=== PATIENT | female | born 1965 | race Caucasian/White ===

== ENCOUNTER → 2016-10-15 | Outpatient (CLI) | payer BC ==
--- NOTE | 2016-10-16 08:02 | MM ---
Reason for exam: additional evaluation requested from abnormal screening. Last mammogram was performed less than 1 month ago. History: Patient is postmenopausal. Family history of breast cancer in maternal aunt. Taking estrogen for 7 years. Physical Findings: Nurse did not find any significant physical abnormalities on exam. MG 3D Work Up W/Cad LT Spot compression CC, spot compression MLO, and LM view(s) were taken of the left breast. Prior study comparison: October 01, 2016, bilateral MG 3d screening mammo w/cad. September 30, 2015, bilateral MG screening mammo w CAD. September 17, 2014, bilateral MG screening mammo w CAD. June 01, 2013, bilateral digital screening mammo w/CAD. The breast tissue is heterogeneously dense. This may lower the sensitivity of mammography. The lateral asymmetry does not persist on additional views compatible with summation shadow. These results were verbally communicated with the patient and result sheet given to the patient on 10/15/16. ASSESSMENT: Negative, BI-RAD 1 RECOMMENDATION: Return to routine screening mammogram schedule for both breasts.
== END | disposition home or self-care (01) ==
LOC: RADMAMWWP 15:27
PROVIDERS: ATTEND Obstetrics & Gynecology
DX: R92.8 Other abnormal and inconclusive findings on diagnostic imaging of breast (principal)
CPT/HCPCS: G0206; G0279

== ENCOUNTER → 2016-10-23 | Outpatient (CLI) | payer BC ==
--- NOTE | 2016-10-26 16:03 | BD ---
EXAMINATION TYPE: MG DEXA axial skeleton. DATE OF EXAM: 10/23/2016 4:32 PM COMPARISON: NONE CLINICAL HISTORY: Height: 61 IN Weight: 152 LBS FRAX RISK QUESTIONS: Alcohol (3 or more units per day): NO Family History (Parent hip fracture): NO Glucocorticoids (More than 3mos): NO (Ex: prednisone, prednisolone, methylprednisolone, dexamethasone, and hydrocortisone). History of Fracture in Adulthood: NO Secondary Osteoporosis: 1. Type 1 Diabetes: NO 2. Hyperthyroidism: NO 3. Menopause before 45: YES PART HYST AGE 31 4. Malnutrition: NO 5. Chronic liver disease: NO Rheumatoid Arthritis: NO Current Tobacco Use: NO RISK FACTORS HISTORY OF: Active: YES Diet low in dairy products/other sources of calcium: YES Postmenopausal woman: AGE 31 Take estrogen and/or progesterone medications: YES How long: PREMARIN SINCE AGE 43 MEDICATIONS: Additional Medications: CALCIUM, VIT D, VIT E, IODINE DROPS, B12, EXAM MEASUREMENTS: Bone mineral densitometry was performed using the [email or web address] System. Bone mineral density as measured about the Lumbar spine is: ----- L1-L4(G/cm2): 1.405 T Score Values are as follows: ----- L2: 1.0 ----- L3: 2.8 ----- L4: 1.9 ----- L1-L4: 1.9 Bone mineral density has: NO CHANGE 0.0% since study of: 09/17/2014 Bone mineral density about the R hip (g/cm2): 1.062 Bone mineral density about the L hip (g/cm2): 1.048 T Score values are as follows: -----R Neck: 0.2 -----L Neck: 0.1 -----R Intertrochanter: -0.6 -----L Intertrochanter: -0.3 Bone mineral density has: Decreased -0.5% since study of: 09/17/2014 IMPRESSION: Normal (Values between +1 and -1 indicate normal bone mass) NOTE: T-SCORE=SD OF THE YOUNG ADULT MEAN.
== END | disposition home or self-care (01) ==
LOC: RADBDWWP 16:12
PROVIDERS: ATTEND Obstetrics & Gynecology
DX: M85.80 Other specified disorders of bone density and structure, unspecified site (principal)
CPT/HCPCS: 77080

== ENCOUNTER → 2016-10-23 | Outpatient (CLI) | payer BC ==
[2016-10-23 16:37] LABS: ALT 35 U/L (9-52); AST 20 U/L (14-36); Alkaline Phosphatase 105 U/L (38-126); Anion Gap 10 mmol/L; Blood Urea Nitrogen 17 mg/dL (7-17); Calcium 9.7 mg/dL (8.4-10.2); Carbon Dioxide 27 mmol/L (22-30); Chloride 105 mmol/L (98-107); Glucose 92 mg/dL (74-99); Non-African American GFR(MDRD) >60 (>60 ml/min/1.73 sqM); Potassium 4.1 mmol/L (3.5-5.1); Sodium 142 mmol/L (137-145); Total Bilirubin 0.3 mg/dL (0.2-1.3); Total Protein 6.5 g/dL (6.3-8.2)
== END | disposition home or self-care (01) ==
LOC: LABWHC1 16:00
PROVIDERS: ATTEND Surgery
DX: E04.1 Nontoxic single thyroid nodule (principal)
CPT/HCPCS: 36415; 80053; 84443; 84481

== ENCOUNTER → 2016-11-02 | Outpatient (CLI) | payer BC ==
--- NOTE | 2016-11-03 07:43 | US ---
EXAMINATION TYPE: US thyroid st tissue head/neck DATE OF EXAM: 11/02/2016 4:15 PM COMPARISON: NONE CLINICAL HISTORY: E04.1 Thyroid Nodule. GLAND SIZE: Right Lobe: 4.4 x 2.0 x 2.4 cm Overall Parenchyma: heterogenous Left Lobe: 4.0 x 1.3 x 1.2 cm Overall Parenchyma: heterogeneous Isthmus Thickness: 0.2 cm NODULES RIGHT: # of nodules measured on right: 1 1. 2.9 X 1.8 x 2.1 cm mixed nodule at the mid/lower pole with well-defined margins; . This nodule is wider than tall and shows intranodular vascularity. Prior size: 2.6 x 1.9 x 2.0 cm LEFT: # of nodules measured on left: 0 ISTHMUS: # of nodules measured in the isthmus: 0 IMPRESSION: 1. Large mixed appearing and predominantly solid nodule right lobe thyroid slightly increased in size from the previous exam. 2. No new thyroid nodules identified
== END | disposition home or self-care (01) ==
LOC: RADUSWWP 15:58
PROVIDERS: ATTEND Surgery
DX: E04.1 Nontoxic single thyroid nodule (principal)
CPT/HCPCS: 76536

== ENCOUNTER → 2017-03-25 | Outpatient (CLI) | payer OTHER ==
--- NOTE | 2017-03-25 18:11 | XR ---
Left foot HISTORY: Trauma and pain 3 views of the left foot No comparisons Bone mineralization, joint spaces and alignment are maintained. There is soft tissue swelling. IMPRESSION: No fracture or dislocation is evident
== END | disposition home or self-care (01) ==
LOC: RADXRMAIN 17:46
PROVIDERS: ATTEND Emergency Medicine
DX: S90.32XA Contusion of left foot, initial encounter (principal); X58.XXXA Exposure to other specified factors, initial encounter

== ENCOUNTER → 2017-09-16 | Outpatient (CLI) | payer BC, OTHER ==
[2017-09-16 08:23] LABS: Cholesterol 156 mg/dL (<200); HDL Cholesterol 62 mg/dL (40-60); LDL Cholesterol,Calculated 83 mg/dL (0-99); Triglycerides 57 mg/dL (<150)
--- NOTE | 2017-09-17 10:37 | MM ---
Reason for exam: screening (asymptomatic). Last mammogram was performed 11 months ago. History: Patient is postmenopausal. Family history of breast cancer in maternal aunt. Taking estrogen for 7 years. Physical Findings: A clinical breast exam by your physician is recommended on an annual basis and results should be correlated with mammographic findings. MG Screening Mammo w CAD Bilateral CC and MLO view(s) were taken. Prior study comparison: October 15, 2016, left breast MG 3d work up w/cad LT. October 01, 2016, bilateral MG 3d screening mammo w/cad. The breast tissue is heterogeneously dense. This may lower the sensitivity of mammography. No significant changes when compared with prior studies. ASSESSMENT: Negative, BI-RAD 1 RECOMMENDATION: Routine screening mammogram of both breasts in 1 year.
== END | disposition home or self-care (01) ==
LOC: RADMAMWWP 07:33
PROVIDERS: ATTEND Obstetrics & Gynecology
DX: Z12.31 Encounter for screening mammogram for malignant neoplasm of breast (principal); E78.5 Hyperlipidemia, unspecified
CPT/HCPCS: 80061; 36415; G0202

== ENCOUNTER → 2017-11-01 | Outpatient (CLI) | payer OTHER ==
--- NOTE | 2017-11-01 14:58 | XR ---
EXAMINATION TYPE: XR chest 2V DATE OF EXAM: 11/01/2017 COMPARISON: NONE HISTORY: Shortness of breath TECHNIQUE: Frontal and lateral views of the chest are obtained. FINDINGS: Scattered senescent parenchymal changes noted. No evidence for infiltrate. No evidence for atelectasis. Heart size is stable. Mediastinal structures are stable and grossly unremarkable. No evidence for hilar prominence. Degenerative changes dorsal spine. IMPRESSION: 1. No evidence for acute pulmonary disease.
== END | disposition home or self-care (01) ==
LOC: RADXRMAIN 14:28
PROVIDERS: ATTEND Emergency Medicine
DX: S20.02XA Contusion of left breast, initial encounter (principal); S20.20XA Contusion of thorax, unspecified, initial encounter
CPT/HCPCS: 71046

== ENCOUNTER → 2017-12-28 | Outpatient (CLI) | payer BC ==
[2017-12-28 17:58] LABS: T4, Free (Free Thyroxine) 0.79 ng/dL (0.78-2.19)
== END | disposition home or self-care (01) ==
LOC: LABWHC1 16:32
PROVIDERS: ATTEND Internal Medicine
DX: R94.6 Abnormal results of thyroid function studies (principal)
CPT/HCPCS: 36415; 84439; 84443; 84445; 84481

== ENCOUNTER 2018-06-18 02:33 | Emergency (ER) | payer BC, OTHER ==
[2018-06-18] MEDS ORDERED: IBUPROFEN 600 MG TAB PO STA (02:58)
--- NOTE | 2018-06-18 03:02 | ED ---
Female Urogenital HPI - General Chief complaint: Urogenital Stated complaint: Female Time Seen by Provider: 06/18/18 02:45 Source: patient, RN notes reviewed Mode of arrival: ambulatory Limitations: no limitations - History of Present Illness Initial comments: This is a 52-year-old female who presents to the emergency department with chief complaint of dysuria. Patient reports increased frequency of urination and burning with urination that started 2 days ago. She states that yesterday afternoon she noticed blood in her urine. Patient thought this was strange as she no longer has her period since having a hysterectomy in her 30s. She states that she has a history of urinary tract infections and symptoms are similar. She states she has been taking cranberry extract throughout the day yesterday. She denies any fevers or chills, chest pain or shortness of breath, abdominal pain, nausea or vomiting, diarrhea or constipation. She states pain is made better in the position. - Related Data Home Medications Medication Instructions Recorded Confirmed Calcium Carbonate/Vitamin D3 1 each PO DAILY 10/02/14 06/18/18 [Os-Andrés 500+D3 Caplet] Vitamin E (Dl,Tocopheryl Acet) 400 unit PO DAILY 10/02/14 06/18/18 [Vitamin E] Cyanocobalamin [Vitamin B-12] 500 mcg PO DAILY 06/18/18 06/18/18 Green Tea [place] Extract [Green Tea 150 mg PO DAILY 06/18/18 06/18/18 Extract] Previous Rx's Medication Instructions Recorded Phenazopyridine HCl [Pyridium] 200 mg PO TID #6 tablet 06/18/18 Sulfamethox-Tmp 800-160Mg [Bactrim 1 tab PO Q12HR #10 tab 06/18/18 DS 800-160 mg] Allergies Allergy/AdvReac Type Severity Reaction Status Date / Time povidone-iodine Allergy Itching Verified 06/18/18 02:38 [From Betadine] clarithromycin [From Biaxin] AdvReac Abdominal Verified 06/18/18 02:38 Pain Review of Systems ROS Statement: Those systems with pertinent positive or pertinent negative responses have been documented in the HPI. ROS Other: All systems not noted in ROS Statement are negative. Past Medical History Past Medical History: Thyroid Disorder History of Any Multi-Drug Resistant Organisms: None Reported Past Surgical History: Hysterectomy, Orthopedic Surgery, Tubal Ligation Additional Past Surgical History / Comment(s): right shoulder reconstruction, fallopian exploration, removal of cyst from neck behind ear and left leg. Past Anesthesia/Blood Transfusion Reactions: Previous Problems w/ Anesthesia Additional Past Anesthesia/Blood Transfusion Reaction / Comment(s): slow to wake up from anesthesia Past Psychological History: No Psychological Hx Reported Smoking Status: Never smoker Past Alcohol Use History: Occasional Past Drug Use History: None Reported - Past Family History Father Family Medical History: Cancer Mother Family Medical History: Cancer, Congestive Heart Failure (CHF), COPD General Exam - General Exam Comments Initial Comments: General: Awake and alert, well-developed; in mild distress due to pain, sitting at the edge of ED stretcher rocking back and forth. HEENT: Head atraumatic, normocephalic. Pupils are equal, round and reactive to light. Extraocular movements intact. Oropharynx moist without erythema or exudate. Neck: Supple. Normal ROM. Cardiovascular: Regular rate and rhythm. No murmurs, rubs or gallops. Chest symmetrical. Respiratory: Lungs clear to auscultation bilaterally. No wheezes, rales or rhonchi. Normal respiratory effort with no use of accessory muscles. Abdomen: Soft, non-distended. Suprapubic tenderness on palpation. No rigidity , rebound or guarding. Normal bowel sounds in all 4 quadrants. No CVA tenderness bilaterally. Musculoskeletal: Normal ROM, no tenderness bilateral upper and lower extremities. Ambulating normally. Skin: Mildred, warm and dry without rashes or lesions. Neurological: Alert and oriented x3. CN II-XII grossly intact. Speech is fluent and answers are appropriate. No focal neuro deficits. Psychiatric: Normal mood and affect. No overt signs of depression or anxiety noted. Limitations: no limitations Course Vital Signs 06/18/18 02:35 Temperature 97.4 F L Pulse Rate 93 Respiratory 18 Rate Blood Pressure 133/86 O2 Sat by Pulse 96 Oximetry Medical Decision Making - Medical Decision Making This is a 52-year-old female who presents to the emergency department with chief complaint of urinary symptoms. Patient reports urinary frequency, urgency and dysuria for 2 days. She states she then developed hematuria. Reports a history of urinary tract infections. On physical examination, patient does have mild suprapubic tenderness. No CVA tenderness. Patient denies any fevers or chills. She was given ibuprofen and states that her symptoms have improved. UA revealed large red blood cells, white blood cells, white blood cell clumps and leukocyte esterase. Patient will be treated with Bactrim and Pyridium for hemorrhagic cystitis. Recommended following up with primary care provider on Wednesday for repeat urinalysis. She will be discharged home at this time. She is in agreement with plan and voices understanding. All questions were answered. - Lab Data Lab Results 06/18/18 Range/Units 02:35 Urine Color Red Urine Appearance Cloudy H (Clear) Urine pH 7.0 (5.0-8.0) Ur Specific [place] 1.015 (1.001-1.035) Urine Protein 2+ H (Negative) Urine Glucose (UA) Negative (Negative) Urine Ketones Negative (Negative) Urine Blood Large H (Negative) Urine Nitrite Negative (Negative) Urine Bilirubin Negative (Negative) Urine Urobilinogen <2.0 (<2.0) mg/dL Ur Leukocyte Esterase Large H (Negative) Urine RBC >182 H (0-5) /hpf Urine WBC >182 H (0-5) /hpf Urine WBC Clumps Moderate H (None) /hpf Urine Bacteria Rare H (None) /hpf Urine Mucus Rare H (None) /hpf Disposition Clinical Impression: Hemorrhagic cystitis Disposition: HOME SELF-CARE Condition: Good Instructions: Urinary Tract Infection in Women (ED), Hematuria (ED) Additional Instructions: As discussed, please have urinalysis repeated on Wednesday to monitor for resolution of hematuria. Please take medications as prescribed. Please follow up with primary care provider within 1-2 days. Return to emergency department if symptoms should worsen or any concerns arise. Prescriptions: Phenazopyridine HCl [Pyridium] 200 mg PO TID #6 tablet Sulfamethox-Tmp 800-160Mg [Bactrim DS 800-160 mg] 1 tab PO Q12HR #10 tab Is patient prescribed a controlled substance at d/c from ED?: No Referrals: Maik Adams MD [Primary Care Provider] - 1-2 days Time of Disposition: 04:25
[2018-06-18 03:50] LABS: Appearance,Urine Cloudy (Clear); Bacteria,Urine Rare /hpf; Bilirubin,Urine Negative (Negative); Blood,Urine Large (Negative); Color,Urine Red; Glucose,Urine (UA) Negative (Negative); Ketones,Urine Negative (Negative); Leukocyte Esterase,Urine Large (Negative); Mucus,Urine Rare /hpf; Nitrite,Urine Negative (Negative); Protein,Urine 2+ (Negative); RBC,Urine >182 /hpf (0-5); Specific Gravity,Urine 1.015 (1.001-1.035); Urobilinogen,Urine <2.0 mg/dL (<2.0); WBC,Urine >182 /hpf (0-5)
[2018-06-18] MEDS ORDERED: PHENAZOPYRIDINE 200 MG TAB PO STA (04:28)
[2018-06-18] MEDS ORDERED: SULFAMETHOX-TMP 800-160MG 1 EACH TAB PO STA (04:28)
[2018-06-18 04:40] VITALS: BP 130/79; PULSE 78; RESP 20; TEMP 96.9
== END 2018-06-18 05:16 | disposition home or self-care (01) ==
LOC: EC 02:33
DX: N30.91 Cystitis, unspecified with hematuria (principal); Z88.8 Allergy status to other drugs, medicaments and biological substances; Z90.710 Acquired absence of both cervix and uterus
CPT/HCPCS: 81001; 99283

== ENCOUNTER → 2019-01-11 | Outpatient (CLI) | payer BC ==
--- NOTE | 2019-01-12 13:28 | MM ---
Reason for exam: screening (asymptomatic). Last mammogram was performed 1 year and 4 months ago. History: Patient is postmenopausal. Family history of breast cancer in maternal aunt. Taking estrogen for 7 years. Physical Findings: A clinical breast exam by your physician is recommended on an annual basis and results should be correlated with mammographic findings. MG Screening Mammo w CAD Bilateral CC and MLO view(s) were taken. Prior study comparison: September 16, 2017, bilateral MG screening mammo w CAD. October 15, 2016, left breast MG 3d work up w/cad LT. The breast tissue is heterogeneously dense. This may lower the sensitivity of mammography. There is chronic nodularity in the right breast. There is no discrete abnormality. ASSESSMENT: Negative, BI-RAD 1 RECOMMENDATION: Routine screening mammogram of both breasts in 1 year.
== END ==
LOC: RADMAMWWP 16:35
PROVIDERS: ATTEND Obstetrics & Gynecology
DX: Z12.31 Encounter for screening mammogram for malignant neoplasm of breast (principal)
CPT/HCPCS: 77067

== ENCOUNTER → 2020-05-08 | Outpatient (CLI) | payer BC | END | disposition home or self-care (01) | LOC: LABWHC1 08:57 | PROVIDERS: ATTEND Internal Medicine | DX: E03.9 Hypothyroidism, unspecified (principal) | CPT/HCPCS: 36415; 84439; 84443 ==

== ENCOUNTER 2020-06-18 14:45 | Observation (INO) | payer BC ==
[2020-06-18] MEDS ORDERED: MORPHINE SULFATE 2 MG/ML SYRINGE IVP STA (15:36)
[2020-06-18] MEDS ORDERED: SODIUM CHLORIDE 0.9% 500 ML 500 ML IV ONE (15:36)
[2020-06-18] MEDS ORDERED: VANCOMYCIN IV PER PHARMACY 1 EACH MISC MISCELLANE PRN (15:38)
[2020-06-18] MEDS ORDERED: PIPERACILLIN-TAZOBACTAM 3.375 GM in SODIUM CHLORIDE 0.9% 100 ML IVPB STA (15:38)
[2020-06-18] MEDS ORDERED: VANCOMYCIN 1,500 MG in SODIUM CHLORIDE 0.9% 250 ML IVPB STA (15:42)
[2020-06-18 16:27] LABS: Basophils # (A) 0.1 k/uL (0-0.2); Basophils % (A) 1 %; Eosinophils # (A) 0.2 k/uL (0-0.7); Eosinophils % (A) 4 %; HCT 46.2 % (34.0-46.0); HGB 15.3 gm/dL (11.4-16.0); Lymphocytes # (A) 1.5 k/uL (1.0-4.8); Lymphocytes % (A) 23 %; MCH 31.2 pg (25.0-35.0); MCHC 33.1 g/dL (31.0-37.0); MCV 94.3 fL (80.0-100.0); Mean Platelet Volume 7.5; Monocytes # (A) 0.4 k/uL (0-1.0); Monocytes % (A) 6 %; Neutrophils # (A) 4.2 k/uL (1.3-7.7); Neutrophils % (A) 65 %; Platelet Count 187 k/uL (150-450); RDW 12.3 % (11.5-15.5); WBC 6.5 k/uL (3.8-10.6)
[2020-06-18 16:32] LABS: ALT 20 U/L (4-34); AST 27 U/L (14-36); African American GFR (CKD) >90 (>60 ml/min/1.73 sqM); Albumin 4.8 g/dL (3.5-5.0); Alkaline Phosphatase 120 U/L (38-126); Anion Gap 10 mmol/L; Blood Urea Nitrogen 14 mg/dL (7-17); Calcium 9.8 mg/dL (8.4-10.2); Carbon Dioxide 24 mmol/L (22-30); Chloride 104 mmol/L (98-107); Glucose 89 mg/dL (74-99); Non-African American GFR(CKD) >90 (>60 ml/min/1.73 sqM); Potassium 4.3 mmol/L (3.5-5.1); Sodium 138 mmol/L (137-145); Total Bilirubin 0.6 mg/dL (0.2-1.3); Total Protein 7.5 g/dL (6.3-8.2)
--- NOTE | 2020-06-18 16:56 | XR ---
EXAMINATION TYPE: XR finger RT DATE OF EXAM: 06/18/2020 COMPARISON: None HISTORY: Flexor tenosynovitis TECHNIQUE: Three-view ring finger FINDINGS: No acute fractures or dislocations are evident. Joint spaces are preserved. There may be so me mild soft tissue swelling over the proximal ring finger. No radiopaque foreign bodies are evident. IMPRESSION: 1. No suspicious acute osseous abnormality. 2. Mild soft tissue swelling over the proximal ring finger may be present.
--- NOTE | 2020-06-18 16:59 | ED ---
Skin/Abscess/FB HPI <Chavo Jerry - Last Filed: 06/18/20 17:32> - General Source: patient Mode of arrival: ambulatory Limitations: no limitations <Simona Washington - Last Filed: 06/18/20 17:54> - General Chief complaint: Skin/Abscess/Foreign Body Stated complaint: poss bug bite rt hand Time Seen by Provider: 06/18/20 14:57 - History of Present Illness Initial comments: 54-year-old female presenting for right ring finger swelling and pain. Patient states she believes she was bit by a bug yesterday around noon. Patient states she now has redness of the entire digit and entire digit swelling she states is very tender if she bends the finger. She states she is limited range of motion. Patient states that she has pain along the palm of the hand now. He feels the redness streaking up the dorsal aspect of her distal forearm, admits to warmth of area. Patietn denies entire body rash. Denies drainage. Patietn states when pain and swelling increased today she went to her PCP who sent her to the ER because he was concerned of infection. Patient appears well nontoxic on arrival in the emergency department. (Simona Washington) - Related Data Home Medications Medication Instructions Recorded Confirmed Calcium Carbonate/Vitamin D3 1 each PO DAILY 10/02/14 06/18/18 [Os-Andrés 500+D3 Caplet] Vitamin E (Dl,Tocopheryl Acet) 400 unit PO DAILY 10/02/14 06/18/18 [Vitamin E] Cyanocobalamin [Vitamin B-12] 500 mcg PO DAILY 06/18/18 06/18/18 Green Tea [place] Extract [Green Tea 150 mg PO DAILY 06/18/18 06/18/18 Extract] Previous Rx's Medication Instructions Recorded Phenazopyridine HCl [Pyridium] 200 mg PO TID #6 tablet 06/18/18 Sulfamethox-Tmp 800-160Mg [Bactrim 1 tab PO Q12HR #10 tab 06/18/18 DS 800-160 mg] Allergies Allergy/AdvReac Type Severity Reaction Status Date / Time povidone-iodine Allergy Itching Verified 06/18/20 14:48 [From Betadine] clarithromycin [From Biaxin] AdvReac Abdominal Verified 06/18/20 14:48 Pain Review of Systems ROS Other: All systems not noted in ROS Statement are negative. <Chavo Jerry - Last Filed: 06/18/20 17:32> ROS Other: All systems not noted in ROS Statement are negative. <Simona Washington - Last Filed: 06/18/20 17:54> ROS Statement: Those systems with pertinent positive or pertinent negative responses have been documented in the HPI. Past Medical History Past Medical History: Thyroid Disorder History of Any Multi-Drug Resistant Organisms: None Reported Past Surgical History: Hysterectomy, Orthopedic Surgery, Tubal Ligation Additional Past Surgical History / Comment(s): right shoulder reconstruction, fallopian exploration, removal of cyst from neck behind ear and left leg. Past Anesthesia/Blood Transfusion Reactions: Previous Problems w/ Anesthesia Additional Past Anesthesia/Blood Transfusion Reaction / Comment(s): slow to wake up from anesthesia Past Psychological History: No Psychological Hx Reported Smoking Status: Former smoker Past Alcohol Use History: Occasional Past Drug Use History: None Reported - Past Family History Father Family Medical History: Cancer Mother Family Medical History: Cancer, Congestive Heart Failure (CHF), COPD <Simona Washington - Last Filed: 06/18/20 17:54> General Exam Limitations: no limitations <Simona Washington - Last Filed: 06/18/20 17:54> - General Exam Comments Initial Comments: General: The patient is awake and alert, in no distress, and does not appear acutely ill. Eye: +3 mm pupils are equal, round and reactive to light, extra-ocular movements are intact. No nystagmus. There is normal conjunctiva bilaterally. No signs of icterus. Ears, nose, mouth and throat: There are moist mucous membranes and no oral lesions. Musculoskeletal: Right ring finger swelling, redness, pain with active an dpassive flexion and along tendon seath there is fusiform swelling, there is some warmth, faint redness on dorsal aspec that traveling the ulnar aspect towards proximal forearm. No ascbess or areas of fluctuance Sensation intact. Radial pulses equal bilaterally 2+. Neurological: A&O x 3. CN II-XII intact grossly, There are no obvious motor or sensory deficits. Coordination appears grossly intact. Speech is normal. Skin: Skin is warm and dry and no rashes or lesions are noted. Psychiatric: Cooperative, appropriate mood & affect, normal judgment. (Simona Washington) Course <Chavo Jerry - Last Filed: 06/18/20 17:32> Vital Signs 06/18/20 06/18/20 14:46 15:02 Temperature 97.9 F Pulse Rate 74 Respiratory 16 16 Rate Blood Pressure 131/83 O2 Sat by Pulse 97 Oximetry - Reevaluation(s) Reevaluation #1: 06/18/20 17:32 PA supervision: I proceeded [id number] evaluation the patient she did present with complaints of right ring finger pain and erythema swelling after a suspected insect bite. The presentation is consistent with tenosynovitis. Patient will be admitted to orthopedics. I do agree with the assessment and plan. (Chavo Jerry) Medical Decision Making - Lab Data Result diagrams: 06/18/20 16:07 06/18/20 16:07 <Chavo Jerry - Last Filed: 06/18/20 17:32> - Lab Data Result diagrams: 06/18/20 16:07 06/18/20 16:07 <Simona Washington - Last Filed: 06/18/20 17:54> - Medical Decision Making 54-year-old female presenting to the emergency department for chief complaint of right ring finger pain and swelling redness she was concerned of infection. Differential diagnosis includes local reaction to bug bite that patient suspects. However given the [place] signs are present there is concern for a flexor tenosynovitis. XR no radial lucent foreign body. Patient does not appear toxic, no leukocytosis. Discussed case [facility] orthopedic who recommended ID consult, elevation of hand are agreeable to zosyn and vancomycin as well as admission. Pt evaluated by Dr. Jerry who is agreeable to care plan and admission. (Simona Washington) - Lab Data Lab Results 06/18/20 06/18/20 06/18/20 Range/Units 16:07 16:07 16:21 WBC 6.5 (3.8-10.6) k/uL RBC 4.90 (3.80-5.40) m/uL Hgb 15.3 (11.4-16.0) gm/dL Hct 46.2 H (34.0-46.0) % MCV 94.3 (80.0-100.0) fL MCH 31.2 (25.0-35.0) pg MCHC 33.1 (31.0-37.0) g/dL RDW 12.3 (11.5-15.5) % Plt Count 187 (150-450) k/uL Neutrophils % 65 % Lymphocytes % 23 % Monocytes % 6 % Eosinophils % 4 % Basophils % 1 % Neutrophils # 4.2 (1.3-7.7) k/uL Lymphocytes # 1.5 (1.0-4.8) k/uL Monocytes # 0.4 (0-1.0) k/uL Eosinophils # 0.2 (0-0.7) k/uL Basophils # 0.1 (0-0.2) k/uL Sodium 138 (137-145) mmol/L Potassium 4.3 (3.5-5.1) mmol/L Chloride 104 (98-107) mmol/L Carbon Dioxide 24 (22-30) mmol/L Anion Gap 10 mmol/L BUN 14 (7-17) mg/dL Creatinine 0.75 (0.52-1.04) mg/dL Est GFR (CKD-EPI)AfAm >90 (>60 ml/min/1.73 sqM) Est GFR (CKD-EPI)NonAf >90 (>60 ml/min/1.73 sqM) Glucose 89 (74-99) mg/dL Plasma Lactic Acid Yannick 0.8 (0.7-2.0) mmol/L Calcium 9.8 (8.4-10.2) mg/dL Total Bilirubin 0.6 (0.2-1.3) mg/dL AST 27 (14-36) U/L ALT 20 (4-34) U/L Alkaline Phosphatase 120 (38-126) U/L Total Protein 7.5 (6.3-8.2) g/dL Albumin 4.8 (3.5-5.0) g/dL Disposition <Chavo Jerry - Last Filed: 06/18/20 17:32> Is patient prescribed a controlled substance at d/c from ED?: No Time of Disposition: 17:25 Decision to Admit Reason: Admit from EC Decision Date: 06/18/20 Decision Time: 17:25 <Simona Washington - Last Filed: 06/18/20 17:54> Clinical Impression: Finger swelling, Finger pain, Flexor tenosynovitis of finger Disposition: ADMITTED IP TO THIS HOSP Condition: Stable Referrals: Maik Adams MD [Primary Care Provider] - 1-2 days
[2020-06-18] MEDS ORDERED: NALOXONE 0.4 MG/ML 1 ML VIAL IV PRN (17:23)
[2020-06-18] MEDS: SODIUM CHLORIDE 0.9% 1,000 ML IV SCH (18:20)
[2020-06-18] MEDS: HYDROcodone/APAP 5-325MG 1 EACH TAB PO PRN (20:02)
[2020-06-18] MEDS ORDERED: diphenhydrAMINE 25 MG CAP PO STA (20:35)
[2020-06-19] MEDS: SODIUM CHLORIDE 0.9% 1,000 ML IV SCH ×4 (05:26→23:36)
[2020-06-19] MEDS: HYDROcodone/APAP 5-325MG 1 EACH TAB PO PRN ×2 (08:40→14:10)
[2020-06-19] MEDS ORDERED: VANCOMYCIN 1,250 MG in SODIUM CHLORIDE 0.9% 250 ML IVPB SCH (09:00)
[2020-06-19] MEDS: methylPREDNISolone SOD SUCCI 40 MG/ML 1 ML VIAL IV SCH ×3 (09:24→23:13)
--- NOTE | 2020-06-19 13:16 | P.HPOR ---
History of Present Illness H&P Date: 06/19/20 Chief Complaint: Right ring finger pain swelling She states that she feels that she got bitten by something on her right ring finger about 2 days ago. She initially developed itching then progressed to swelling and pain. She's also had some stiffness and tightness of the finger. She is denying numbness or tingling. She presented to the emergency department yesterday with continued pain and symptoms. She was admitted overnight and has been on IV antibiotics. She continues to have pain and swelling this morning. She is denying constant numbness or tingling. She denies fever or chills. She has no other complaints. Review of Systems All systems: negative Constitutional: Denies chills, Denies fever Eyes: denies blurred vision, denies pain Ears, nose, mouth and throat: Denies headache, Denies sore throat Cardiovascular: Denies chest pain, Denies shortness of breath Respiratory: Denies cough Gastrointestinal: Denies abdominal pain, Denies diarrhea, Denies nausea, Denies vomiting Genitourinary: Denies dysuria, Denies hematuria Musculoskeletal: Denies myalgias Integumentary: Denies pruritus, Denies rash Neurological: Denies numbness, Denies weakness Psychiatric: Denies anxiety, Denies depression Endocrine: Denies fatigue, Denies weight change Past Medical History Past Medical History: Thyroid Disorder History of Any Multi-Drug Resistant Organisms: None Reported Past Surgical History: Hysterectomy, Orthopedic Surgery, Tubal Ligation Additional Past Surgical History / Comment(s): right shoulder reconstruction, fallopian exploration, removal of cyst from neck behind ear and left leg. Past Anesthesia/Blood Transfusion Reactions: Previous Problems w/ Anesthesia Additional Past Anesthesia/Blood Transfusion Reaction / Comment(s): slow to wake up from anesthesia Past Psychological History: No Psychological Hx Reported Smoking Status: Former smoker Past Alcohol Use History: Occasional Past Drug Use History: None Reported - Past Family History Father Family Medical History: Cancer Mother Family Medical History: Cancer, Congestive Heart Failure (CHF), COPD Medications and Allergies Home Medications Medication Instructions Recorded Confirmed Type Calcium Carbonate/Vitamin D3 1 each PO HS 10/02/14 06/18/20 History [Os-Andrés 500+D3 Caplet] Vitamin E (Dl,Tocopheryl Acet) 400 unit PO HS 10/02/14 06/18/20 History [Vitamin E] Cyanocobalamin [Vitamin B-12] 500 mcg PO HS 06/18/18 06/18/20 History Biotin Gummy (Unknown Strength) 1 tab PO DAILY 06/18/20 06/18/20 History Estrogens, Conjugated [Premarin] 0.3 mg PO HS 06/18/20 06/18/20 History Levothyroxine Sodium [Synthroid] 20 mcg PO QAM 06/18/20 06/18/20 History Vitamin C Gummy 1 tab PO DAILY 06/18/20 06/18/20 History Allergies Allergy/AdvReac Type Severity Reaction Status Date / Time povidone-iodine Allergy Itching Verified 06/18/20 14:48 [From Betadine] clarithromycin [From Biaxin] AdvReac Abdominal Verified 06/18/20 14:48 Pain Physical Examination There is moderate edema about the right ring finger. Mild diffuse erythema. Tender to palpation. No wound or abcess identified. Pain with Flexion and extension of the ring finger and somewhat limited due to swelling.. The remainder of the digits and hand are benign in appearance and palpation. She is able to flex and extend all other digits without difficulty. There is no ascending erythema. Neurovascular status is intact with sensation in all digits. Motor is intact as well. 2+ radial pulses present and less than 2 second capillary refill is present. There is painless range of motion of the wrist. Results X-rays of the right hand are negative for foreign body, fracture, osteomyelitis. - Labs Labs: Abnormal Lab Results - Last 24 Hours (Table) 06/18/20 06/18/20 Range/Units 16:07 16:07 Hct 46.2 H (34.0-46.0) % C-Reactive Protein 16.8 H (<10.0) mg/L H & H 06/18/20 Range/Units 16:07 Hgb 15.3 (11.4-16.0) gm/dL Hct 46.2 H (34.0-46.0) % Result Diagrams: 06/18/20 16:07 06/18/20 16:07 Assessment and Plan (1) Finger pain Current Visit: Yes Status: Acute Priority: Medium Code(s): M79.646 - PAIN IN UNSPECIFIED FINGER(S) SNOMED Code(s): 00949502 (2) Finger swelling Narrative/Plan: There are no plans for immediate surgical intervention however she will be nothing by mouth after midnight again tonight. She we'll continue on IV antibiotics, elevation and pain management. We'll also order IV corticosteroids today. We will continue to monitor and make further recommendations as appropriate. Also appreciate the assistance of infectious disease. Current Visit: Yes Status: Acute Priority: Medium Code(s): M79.89 - OTHER SPECIFIED SOFT TISSUE DISORDERS SNOMED Code(s): 411771186 (3) Flexor tenosynovitis of finger Current Visit: Yes Status: Acute Priority: Medium Code(s): M65.9 - SYNOVITIS AND TENOSYNOVITIS, UNSPECIFIED SNOMED Code(s): 688121912
[2020-06-20 05:55] LABS: African American GFR (CKD) >90 (>60 ml/min/1.73 sqM); Non-African American GFR(CKD) >90 (>60 ml/min/1.73 sqM)
[2020-06-20] MEDS: SODIUM CHLORIDE 0.9% 1,000 ML IV SCH (06:25)
--- NOTE | 2020-06-20 06:27 | P.CONS ---
History of Present Illness - Reason for Consult Consult date: 06/19/20 Right ring finger tenosynovitis Requesting physician: Manohar Martinez - Chief Complaint Right ring finger pain swelling redness x 2 days - History of Present Illness Patient is a 54 year female presenting to the ER at [facility] yesterday her with the right ring finger pain swelling and redness that has been going on for about 2 days patient mentioned she went to her house and picked up a hose outside in the garden and she thought something bit her in the ring finger she immediately throw away the hose however the patient did not see anything flying out patient noticed the area of irritation to the right ring finger that has progressively gotten worse over the next 24 hours becoming more swollen and slightly red and painful discomfort and the pain to be throbbing almost 10 out of 10 in severity and no radiation patient currently does not have any open wound or any drainage on presentation to the hospital the patient was afebrile did have a normal white count x-rays of the right hand did not show any foreign body did show some swelling of the proximal right ring finger patient was started on vancomycin has been admitted to the observation unit infectious disease was consulted for further management of antibiotic therapy Review of Systems Positive point has been mentioned in the HPI rest of the systems are negative Past Medical History Past Medical History: Thyroid Disorder History of Any Multi-Drug Resistant Organisms: None Reported Past Surgical History: Hysterectomy, Orthopedic Surgery, Tubal Ligation Additional Past Surgical History / Comment(s): right shoulder reconstruction, fallopian exploration, removal of cyst from neck behind ear and left leg. Past Anesthesia/Blood Transfusion Reactions: Previous Problems w/ Anesthesia Additional Past Anesthesia/Blood Transfusion Reaction / Comm: slow to wake up from anesthesia Past Psychological History: No Psychological Hx Reported Smoking Status: Former smoker Past Alcohol Use History: Occasional Past Drug Use History: None Reported - Past Family History Father Family Medical History: Cancer Mother Family Medical History: Cancer, Congestive Heart Failure (CHF), COPD Medications and Allergies Home Medications Medication Instructions Recorded Confirmed Type Calcium Carbonate/Vitamin D3 1 each PO HS 10/02/14 06/18/20 History [Os-Andrés 500+D3 Caplet] Vitamin E (Dl,Tocopheryl Acet) 400 unit PO HS 10/02/14 06/18/20 History [Vitamin E] Cyanocobalamin [Vitamin B-12] 500 mcg PO HS 06/18/18 06/18/20 History Biotin Gummy (Unknown Strength) 1 tab PO DAILY 06/18/20 06/18/20 History Estrogens, Conjugated [Premarin] 0.3 mg PO HS 06/18/20 06/18/20 History Levothyroxine Sodium [Synthroid] 20 mcg PO QAM 06/18/20 06/18/20 History Vitamin C Gummy 1 tab PO DAILY 06/18/20 06/18/20 History Allergies Allergy/AdvReac Type Severity Reaction Status Date / Time povidone-iodine Allergy Itching Verified 06/18/20 14:48 [From Betadine] clarithromycin [From Biaxin] AdvReac Abdominal Verified 06/18/20 14:48 Pain Physical Exam Vitals: Vital Signs Temp Pulse Pulse Resp BP BP Pulse Ox 06/19/20 08:49 97.4 F L 60 14 101/67 95 06/19/20 03:00 63 16 06/19/20 02:30 97.6 F 60 16 121/72 96 06/18/20 19:10 97.8 F 63 16 133/70 95 06/18/20 18:00 97.8 F 62 16 134/78 99 06/18/20 17:51 97.6 F 60 14 146/67 99 06/18/20 15:02 16 06/18/20 14:46 97.9 F 74 16 131/83 97 Intake and Output 06/18/20 06/19/20 06/19/20 22:59 06:59 14:59 Intake Total 1180 Balance 1180 Intake: Amount of Fluid Infused ( 700 ml) Oral 480 Other: Voiding Method Toilet Toilet Toilet # Voids 1 1 Weight 74.843 kg GENERAL DESCRIPTION: Middle-aged female lying in bed, no distress. No tachypnea or accessory muscle of respiration use. HEENT: Shows Pallor , no scleral icterus. Oral mucous membrane is dry. No pharyngeal erythema or thrush NECK: Trachea central, no thyromegaly. LUNGS: Unlabored breathing. Clear to auscultation anteriorly. No wheeze or crackle. HEART: S1, S2, regular rate and rhythm. No loud murmur ABDOMEN: Soft, no tenderness , guarding or rigidity, no organomegaly EXTREMITIES: Right ring finger did have diffuse swelling and redness mostly on the palmar aspect slightly warm and tender to touch no open wound or any drainage SKIN: No rash, no masses palpable. NEUROLOGICAL: The patient is awake, alert, oriented x3, mood and affect normal. 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 with concern for possible bug bite versus trauma from it the sharp when she picked up the hose, and will need to cover for the gram-positive skin danyell such as Streptococcus Less likely MRSA or gram-negative infection (1) Cellulitis of finger of right hand Current Visit: Yes Status: Acute Code(s): L03.011 - CELLULITIS OF RIGHT FINGER SNOMED Code(s): 61407230 Plan: 1- discontinue vancomycin 2- started the patient cefazolin 2 g every 8 hours 3-repeat CBC and inflammatory markers in the morning We will follow on clinical condition and cultures to further adjust medication if needed Thank you for this consultation will follow this patient with you Time with Patient: Greater than 30
[2020-06-20 07:26] LABS: Basophils % (A) 0 %; Eosinophils % (A) 0 %; HGB 13.9 gm/dL (11.4-16.0); Lymphocytes # (A) 0.7 k/uL (1.0-4.8); Lymphocytes % (A) 6 %; MCH 31.2 pg (25.0-35.0); MCHC 32.3 g/dL (31.0-37.0); MCV 96.7 fL (80.0-100.0); Mean Platelet Volume 8.3; Monocytes # (A) 0.3 k/uL (0-1.0); Monocytes % (A) 2 %; Neutrophils # (A) 11.7 k/uL (1.3-7.7); Neutrophils % (A) 92 %; Platelet Count 184 k/uL (150-450); RBC 4.45 m/uL (3.80-5.40); RDW 12.2 % (11.5-15.5); WBC 12.7 k/uL (3.8-10.6)
[2020-06-20 07:58] VITALS: BP 127/66; PULSE 68; RESP 16; TEMP 97.5
[2020-06-20] MEDS: methylPREDNISolone SOD SUCCI 40 MG/ML 1 ML VIAL IV SCH (08:03)
--- NOTE | 2020-06-20 10:17 | P.DS ---
Providers Date of admission: 06/18/20 17:31 Expected date of discharge: 06/20/20 Attending physician: Ricky Tillman Consults: 06/18/20 17:24 Consult Physician Routine Consulting Provider: Norman Hernandez Consult Reason/Comments: r/o flexor tenosynovitis Do you want consulting provider notified?: Yes Primary care physician: Maik Adams - Discharge Diagnosis(es) (1) Finger pain Patient was admitted 06/18/20 for right fing finger swelling and pain. There was suspected bite and possible flexor tenosynitis or infection. She was given IV antibiotics and corticosteroids. She has improved more than 50% by day of discharge with swelling, pain and funstion. She has no signs of infection. She is afebrile, VSS, NVI, labs acceptable ranges. She has no new complaints. She d esires discharge to home. She will take oral antibiotics and oral corticosteroids for 6 days. She will f/u in one week as outpatient. She is advised to f/u sooner if worsens Current Visit: Yes Status: Acute Priority: Medium (2) Finger swelling Current Visit: Yes Status: Acute Priority: Medium (3) Flexor tenosynovitis of finger Current Visit: Yes Status: Acute Priority: Medium Patient Condition at Discharge: Stable Plan - Discharge Summary New Discharge Prescriptions: New Amoxicillin/Potassium Clav [Augmentin 875-125 Tablet] 1 tab PO Q12HR 5 Days #10 tab methylPREDNISolone Dose Pack [Medrol Dose Pack] 4 mg PO DIRECTED #21 package No Action Calcium Carbonate/Vitamin D3 [Os-Andrés 500+D3 Caplet] 1 each PO HS Vitamin E (Dl,Tocopheryl Acet) [Vitamin E] 400 unit PO HS Cyanocobalamin [Vitamin B-12] 500 mcg PO HS Levothyroxine Sodium [Synthroid] 20 mcg PO QAM Estrogens, Conjugated [Premarin] 0.3 mg PO HS Biotin Gummy (Unknown Strength) 1 tab PO DAILY Vitamin C Gummy 1 tab PO DAILY Discharge Medication List Calcium Carbonate/Vitamin D3 [Os-Andrés 500+D3 Caplet] 1 each PO HS 10/02/14 [History] Vitamin E (Dl,Tocopheryl Acet) [Vitamin E] 400 unit PO HS 10/02/14 [History] Cyanocobalamin [Vitamin B-12] 500 mcg PO HS 06/18/18 [History] Biotin Gummy (Unknown Strength) 1 tab PO DAILY 06/18/20 [History] Estrogens, Conjugated [Premarin] 0.3 mg PO HS 06/18/20 [History] Levothyroxine Sodium [Synthroid] 20 mcg PO QAM 06/18/20 [History] Vitamin C Gummy 1 tab PO DAILY 06/18/20 [History] Amoxicillin/Potassium Clav [Augmentin 875-125 Tablet] 1 tab PO Q12HR 5 Days #10 tab 06/20/20 [Rx] methylPREDNISolone Dose Pack [Medrol Dose Pack] 4 mg PO DIRECTED #21 package 06/20/20 [Rx] Follow up Appointment(s)/Referral(s): Maik Adams MD [Primary Care Provider] - 1-2 days Manohar Martinez PAC [PHYSICIAN BRAID MAKER] - 1 Week Activity/Diet/Wound Care/Special Instructions: elevate take meds as directed F/U in office in one week. Sooner if worsens Discharge Disposition: HOME SELF-CARE
== END 2020-06-20 10:57 | disposition home or self-care (01) ==
LOC: EC 14:45 → 1SOBS 17:31
PROVIDERS: ADMIT Orthopaedic Surgery Sports Medicine; ATTEND Orthopaedic Surgery Sports Medicine
DX: M65.9 Synovitis and tenosynovitis, unspecified (principal); Z79.890 Hormone replacement therapy; Z82.49 Family history of ischemic heart disease and other diseases of the circulatory system; Z82.5 Family history of asthma and other chronic lower respiratory diseases; Z87.891 Personal history of nicotine dependence; Z90.710 Acquired absence of both cervix and uterus
CPT/HCPCS: 96361 ×2; 96366 ×3; 96367 ×2; 96375 ×2; 96376 ×2; 96365; 99284; 36415; 80053; 82565; 83605; 85025 ×2; 86140 ×2; 87040; 73140; G0378 ×3; J2543; J3370 ×2; J2920 ×2; J0690 ×2; J2270

== ENCOUNTER → 2020-07-19 | Outpatient (CLI) | payer BC ==
--- NOTE | 2020-07-23 12:19 | MM ---
Reason for exam: screening (asymptomatic). Last mammogram was performed 1 year and 6 months ago. History: Patient is postmenopausal. Family history of breast cancer in maternal aunt. Taking estrogen for 7 years. Physical Findings: A clinical breast exam by your physician is recommended on an annual basis and results should be correlated with mammographic findings. MG 3D Screening Mammo W/Cad Bilateral CC and MLO view(s) were taken. Prior study comparison: January 11, 2019, bilateral MG screening mammo w CAD. September 16, 2017, bilateral MG screening mammo w CAD. The breast tissue is heterogeneously dense. This may lower the sensitivity of mammography. There is chronic nodularity in the right breast. Possible new early oil cyst formation central right breast. Magnification views recommended. ASSESSMENT: Incomplete: need additional imaging evaluation, BI-RAD 0 RECOMMENDATION: Special view mammogram of the right breast. If lesion persists on supplemental views, image directed ultrasound is recommended. [facility] will attempt to contact patient to return for supplemental views and ultrasound if indicated.
== END | disposition home or self-care (01) ==
LOC: RADMAMWWP 16:15
PROVIDERS: ATTEND Obstetrics & Gynecology
DX: Z12.31 Encounter for screening mammogram for malignant neoplasm of breast (principal)
CPT/HCPCS: 77063; 77067

== ENCOUNTER → 2020-08-06 | Outpatient (CLI) | payer BC ==
--- NOTE | 2020-08-06 14:53 | MM ---
Reason for exam: additional evaluation requested from abnormal screening. Last mammogram was performed 1 month ago. History: Patient is postmenopausal. Family history of breast cancer in maternal aunt. Taking estrogen for 15 years. Physical Findings: Nurse did not find any significant physical abnormalities on exam. MG 3D Work Up W/Cad RT CC and MLO view(s) were taken of the right breast. Prior study comparison: July 19, 2020, bilateral MG 3d screening mammo w/cad. January 11, 2019, bilateral MG screening mammo w CAD. The breast tissue is heterogeneously dense. This may lower the sensitivity of mammography. Finding: There are typically benign coarse, grouped/clustered calcifications in the right breast. There is no discrete abnormality. New finding since January 11, 2019. These results were verbally communicated with the patient and result sheet given to the patient on 08/06/20. ASSESSMENT: Probably benign, BI-RAD 3 RECOMMENDATION: Follow-up diagnostic mammogram of the right breast in 6 months.
== END | disposition home or self-care (01) ==
LOC: RADMAMWWP 13:44
PROVIDERS: ATTEND Obstetrics & Gynecology
DX: R92.8 Other abnormal and inconclusive findings on diagnostic imaging of breast (principal)
CPT/HCPCS: 77061; 77065

== ENCOUNTER → 2020-09-17 | Outpatient (CLI) | payer BC | END | disposition home or self-care (01) | LOC: LABWHC1 16:32 | PROVIDERS: ATTEND Nurse Practitioner Family | DX: Z20.828 Contact with and (suspected) exposure to other viral communicable diseases (principal) | CPT/HCPCS: U0003; C9803 ==

== ENCOUNTER → 2021-01-08 | Outpatient (CLI) | payer BC ==
--- NOTE | 2021-01-08 09:48 | MM ---
Reason for exam: follow-up at short interval from prior study. Last mammogram was performed 5 months ago. History: Patient is postmenopausal. Family history of breast cancer in maternal aunt. Taking estrogen for 15 years. Physical Findings: Nurse did not find any significant physical abnormalities on exam. MG 3D Diag Mammo W/Cad RT CC, MLO, and XCCL view(s) were taken of the right breast. Prior study comparison: August 06, 2020, right breast MG 3d work up w/cad RT. July 19, 2020, bilateral MG 3d screening mammo w/cad. The breast tissue is heterogeneously dense. This may lower the sensitivity of mammography. Benign appearing course calcifications in the right breast. No significant new findings when compared with previous films. These results were verbally communicated with the patient and result sheet given to the patient on 01/08/21. ASSESSMENT: Benign, BI-RAD 2 RECOMMENDATION: Return to routine screening mammogram schedule for both breasts. Back on schedule for July 2021.
== END | disposition home or self-care (01) ==
LOC: RADMAMWWP 08:53
PROVIDERS: ATTEND Obstetrics & Gynecology
DX: Z78.0 Asymptomatic menopausal state (principal); Z80.3 Family history of malignant neoplasm of breast
CPT/HCPCS: 77061; 77065

== ENCOUNTER → 2021-07-21 | Outpatient (CLI) | payer BC ==
[2021-07-22 15:03] LABS: Anion Gap 11.9 mmol/L (4.00-12.00); BUN/Creat Ratio 20.27 Ratio (12.00-20.00); Blood Urea Nitrogen 14.8 mg/dL (9.0-27.0); Calcium 9.4 mg/dL (8.7-10.3); Non-African American GFR(CKD) 91.4 (60.0-200.0); Potassium 3.9 mmol/L (3.5-5.5); T4, Free (Free Thyroxine) 1.15 ng/dL (0.800-1.800)
== END | disposition home or self-care (01) ==
LOC: LABWHC1 14:21
PROVIDERS: ATTEND Internal Medicine
DX: E55.9 Vitamin D deficiency, unspecified (principal); N95.1 Menopausal and female climacteric states
CPT/HCPCS: 36415; 80048; 82306; 84439; 84443

== ENCOUNTER → 2021-09-16 | Outpatient (CLI) | payer BC ==
--- NOTE | 2021-09-17 12:47 | MM ---
Reason for exam: screening (asymptomatic). Last mammogram was performed 8 months ago. History: Patient is postmenopausal. Family history of breast cancer in maternal aunt. Taking estrogen for 15 years. Physical Findings: A clinical breast exam by your physician is recommended on an annual basis and results should be correlated with mammographic findings. MG 3D Screening Mammo W/Cad Bilateral CC and MLO view(s) were taken. Prior study comparison: January 08, 2021, right breast MG 3d diag mammo w/cad RT. August 06, 2020, right breast MG 3d work up w/cad RT. The breast tissue is heterogeneously dense. This may lower the sensitivity of mammography. No significant changes when compared with prior studies. ASSESSMENT: Benign, BI-RAD 2 RECOMMENDATION: Routine screening mammogram of both breasts in 1 year.
== END | disposition home or self-care (01) ==
LOC: RADMAMWWP 10:45
PROVIDERS: ATTEND Obstetrics & Gynecology
DX: Z12.31 Encounter for screening mammogram for malignant neoplasm of breast (principal); Z80.3 Family history of malignant neoplasm of breast
CPT/HCPCS: 77063; 77067

== ENCOUNTER 2022-07-09 15:14 | Emergency (ER) | payer BC ==
[2022-07-09] MEDS ORDERED: SODIUM CHLORIDE 0.9% 500 ML 500 ML IV STA (15:50)
[2022-07-09] MEDS ORDERED: KETOROLAC 15 MG/ML 1 ML VIAL IVP STA (15:50)
--- NOTE | 2022-07-09 15:54 | ED ---
General Adult HPI - General Chief complaint: Shortness of Breath Stated complaint: Covid+,LISA Time Seen by Provider: 07/09/22 15:40 Source: patient Mode of arrival: ambulatory Limitations: no limitations - History of Present Illness Initial comments: Dictation was produced using [employer] dictation software. please excuse any grammatical, word or spelling errors. Chief Complaint: 57-year-old female presents emergency Department with chest pressure, shortness of breath,, lower back pain and positive cold test today History of Present Illness: Patient is a 57-year-old female she presents to the emergency department from home. Patient tested positive for COVID-19 earlier today. She's been symptomatic for 2 days. Patient has symptoms of lower back pain, shortness of breath, chest pressure to the anterior chest and raspy voice. Patient has any fevers however she has been having some chills and fatigue. Denies any abdominal pain. No nausea. Chest pain is nonradiating no associated diaphoresis. The ROS documented in this emergency department record has been reviewed and confirmed by me. Those systems with pertinent positive or negative responses have been documented in the HPI. All other systems are other negative and/or noncontributory. PHYSICAL EXAM: General Impression: Alert and oriented x3, not in acute distress, no stridor HEENT: Normocephalic atraumatic, extra-ocular movements intact, pupils equal and reactive to light bilaterally, mucous membranes moist. Cardiovascular: Heart regular rate and rhythm Chest: Able to complete full sentences, no retractions, no tachypnea Abdomen: abdomen soft, non-tender, non-distended, no organomegaly Musculoskeletal: Pulses present and equal in all extremities, no peripheral edema Motor: no focal deficits noted Neurological: CN II-XII grossly intact, no focal motor or sensory deficits noted Skin: Intact with no visualized rashes Psych: Normal affect and mood ED course: 57-year-old female presents to the emergency department for coronavirus. She has symptoms associated COVID-19 including chest pressure, shortness of breath and constitutional symptoms. Vital signs upon arrival shows respiratory rate of 26, rest of vital signs within acceptable limits. Patient is not hypoxic. Laboratory evaluation obtained. CBC, coag panel, metabolic panel is unrema rkable. For panel viral PCR confirms positivity for COVID-19. Chest x-ray is unremarkable. Patient given IV fluids Toradol. Patient observed in the emergency department for approximately 2 hours 15 minutes. Patient reevaluated at bedside at 5:30 PM found to be stable medical condition. Patient vitals are normal. Not showing any signs of dyspnea. Patient is a candidate for paxlovid. EKG interpretation: Ventricular rate 70, sinus rhythm,. Interval 154, care is 88, QTC 374. No MN prolongation, no QTC prolongation, no ST or T-wave changes noted. Overall, this EKG is unremarkable - Related Data Home Medications Medication Instructions Recorded Confirmed Calcium Carbonate/Vitamin D3 1 each PO HS 10/02/14 06/18/20 [Os-Andrés 500+D3 Caplet] Vitamin E (Dl,Tocopheryl Acet) 400 unit PO HS 10/02/14 06/18/20 [Vitamin E] Cyanocobalamin [Vitamin B-12] 500 mcg PO HS 06/18/18 06/18/20 Biotin Gummy (Unknown Strength) 1 tab PO DAILY 06/18/20 06/18/20 Estrogens, Conjugated [Premarin] 0.3 mg PO HS 06/18/20 06/18/20 Levothyroxine Sodium [Synthroid] 20 mcg PO QAM 06/18/20 06/18/20 Vitamin C Gummy 1 tab PO DAILY 06/18/20 06/18/20 Previous Rx's Medication Instructions Recorded Amoxicillin/Potassium Clav 1 tab PO Q12HR 5 Days #10 tab 06/20/20 [Augmentin 875-125 Tablet] methylPREDNISolone Dose Pack 4 mg PO DIRECTED #21 package 06/20/20 [Medrol Dose Pack] Nirmatrelvir/Ritonavir [Paxlovid 1 each PO BID 5 Days #10 each 07/09/22 300-100 mg Pack (Eua)] Allergies Allergy/AdvReac Type Severity Reaction Status Date / Time povidone-iodine Allergy Itching Verified 07/09/22 15:36 [From Betadine] clarithromycin [From Biaxin] AdvReac Abdominal Verified 07/09/22 15:36 Pain Review of Systems ROS Statement: Those systems with pertinent positive or pertinent negative responses have been documented in the HPI. ROS Other: All systems not noted in ROS Statement are negative. Past Medical History Past Medical History: Thyroid Disorder Additional Past Medical History / Comment(s): COVID History of Any Multi-Drug Resistant Organisms: None Reported Past Surgical History: Hysterectomy, Orthopedic Surgery, Tubal Ligation Additional Past Surgical History / Comment(s): right shoulder reconstruction, fallopian exploration, removal of cyst from neck behind ear and left leg. Past Anesthesia/Blood Transfusion Reactions: Previous Problems w/ Anesthesia Additional Past Anesthesia/Blood Transfusion Reaction / Comment(s): slow to wake up from anesthesia Past Psychological History: No Psychological Hx Reported Smoking Status: Former smoker Past Alcohol Use History: Occasional Past Drug Use History: None Reported - Past Family History Father Family Medical History: Cancer Mother Family Medical History: Cancer, Congestive Heart Failure (CHF), COPD General Exam Limitations: no limitations Course Vital Signs 07/09/22 07/09/22 15:33 17:00 Temperature 98.2 F Pulse Rate 97 Respiratory 26 H 18 Rate Blood Pressure 145/87 O2 Sat by Pulse 98 Oximetry Medical Decision Making - Lab Data Result diagrams: 07/09/22 16:19 07/09/22 16:19 Lab Results 07/09/22 07/09/22 07/09/22 Range/Units 16:19 16:19 16:19 WBC 6.2 (3.8-10.6) k/uL RBC 4.17 (3.80-5.40) m/uL Hgb 13.8 (11.4-16.0) gm/dL Hct 38.5 (34.0-46.0) % MCV 92.1 (80.0-100.0) fL MCH 33.0 (25.0-35.0) pg MCHC 35.8 (31.0-37.0) g/dL RDW 11.9 (11.5-15.5) % Plt Count 160 (150-450) k/uL MPV 7.7 Neutrophils % 69 % Lymphocytes % 18 % Monocytes % 10 % Eosinophils % 1 % Basophils % 1 % Neutrophils # 4.3 (1.3-7.7) k/uL Lymphocytes # 1.1 (1.0-4.8) k/uL Monocytes # 0.6 (0-1.0) k/uL Eosinophils # 0.1 (0-0.7) k/uL Basophils # 0.0 (0-0.2) k/uL PT 10.5 (9.0-12.0) sec INR 1.0 (<1.2) APTT 25.3 (22.0-30.0) sec Sodium 141 (137-145) mmol/L Potassium 3.6 (3.5-5.1) mmol/L Chloride 103 (98-107) mmol/L Carbon Dioxide 27 (22-30) mmol/L Anion Gap 11 mmol/L BUN 10 (7-17) mg/dL Creatinine 0.70 (0.52-1.04) mg/dL Est GFR (CKD-EPI)AfAm >90 (>60 ml/min/1.73 sqM) Est GFR (CKD-EPI)NonAf >90 (>60 ml/min/1.73 sqM) Glucose 79 (74-99) mg/dL Calcium 8.8 (8.4-10.2) mg/dL Troponin I (0.000-0.034) ng/mL Influenza Type A (PCR) (Not Detectd) Influenza Type B (PCR) (Not Detectd) RSV (PCR) (Not Detectd) SARS-CoV-2 (PCR) (Not Detectd) 07/09/22 07/09/22 Range/Units 16:19 16:19 WBC (3.8-10.6) k/uL RBC (3.80-5.40) m/uL Hgb (11.4-16.0) gm/dL Hct (34.0-46.0) % MCV (80.0-100.0) fL MCH (25.0-35.0) pg MCHC (31.0-37.0) g/dL RDW (11.5-15.5) % Plt Count (150-450) k/uL MPV Neutrophils % % Lymphocytes % % Monocytes % % Eosinophils % % Basophils % % Neutrophils # (1.3-7.7) k/uL Lymphocytes # (1.0-4.8) k/uL Monocytes # (0-1.0) k/uL Eosinophils # (0-0.7) k/uL Basophils # (0-0.2) k/uL PT (9.0-12.0) sec INR (<1.2) APTT (22.0-30.0) sec Sodium (137-145) mmol/L Potassium (3.5-5.1) mmol/L Chloride (98-107) mmol/L Carbon Dioxide (22-30) mmol/L Anion Gap mmol/L BUN (7-17) mg/dL Creatinine (0.52-1.04) mg/dL Est GFR (CKD-EPI)AfAm (>60 ml/min/1.73 sqM) Est GFR (CKD-EPI)NonAf (>60 ml/min/1.73 sqM) Glucose (74-99) mg/dL Calcium (8.4-10.2) mg/dL Troponin I <0.012 (0.000-0.034) ng/mL Influenza Type A (PCR) Not Detected (Not Detectd) Influenza Type B (PCR) Not Detected (Not Detectd) RSV (PCR) Not Detected (Not Detectd) SARS-CoV-2 (PCR) Detected A (Not Detectd) Disposition Clinical Impression: Coronavirus infection Disposition: HOME SELF-CARE Condition: Good Instructions (If sedation given, give patient instructions): Coronavirus Disease 2019 (COVID-19) Prescriptions: Nirmatrelvir/Ritonavir [Paxlovid 300-100 mg Pack (Eua)] 1 each PO BID 5 Days #10 each Is patient prescribed a controlled substance at d/c from ED?: No Referrals: Vinicio Good DO [Primary Care Provider] - 1-2 days Time of Disposition: 17:32
[2022-07-09 16:40] LABS: Basophils % (A) 1 %; Eosinophils # (A) 0.1 k/uL (0-0.7); Eosinophils % (A) 1 %; HCT 38.5 % (34.0-46.0); HGB 13.8 gm/dL (11.4-16.0); Lymphocytes # (A) 1.1 k/uL (1.0-4.8); Lymphocytes % (A) 18 %; MCHC 35.8 g/dL (31.0-37.0); MCV 92.1 fL (80.0-100.0); Mean Platelet Volume 7.7; Monocytes # (A) 0.6 k/uL (0-1.0); Monocytes % (A) 10 %; Neutrophils # (A) 4.3 k/uL (1.3-7.7); Neutrophils % (A) 69 %; Platelet Count 160 k/uL (150-450); RBC 4.17 m/uL (3.80-5.40); RDW 11.9 % (11.5-15.5); WBC 6.2 k/uL (3.8-10.6)
[2022-07-09 16:53] LABS: African American GFR (CKD) >90 (>60 ml/min/1.73 sqM); Anion Gap 11 mmol/L; Blood Urea Nitrogen 10 mg/dL (7-17); Calcium 8.8 mg/dL (8.4-10.2); Carbon Dioxide 27 mmol/L (22-30); Chloride 103 mmol/L (98-107); Glucose 79 mg/dL (74-99); Non-African American GFR(CKD) >90 (>60 ml/min/1.73 sqM); Potassium 3.6 mmol/L (3.5-5.1); Sodium 141 mmol/L (137-145)
--- NOTE | 2022-07-09 16:56 | XR ---
EXAMINATION TYPE: XR chest 1V portable DATE OF EXAM: 07/09/2022 COMPARISON: 11/01/2017 HISTORY: Shortness of breath TECHNIQUE: Frontal and lateral views of the chest are obtained. FINDINGS: Scattered senescent parenchymal changes noted. No evidence for infiltrate. No evidence for atelectasis. Heart size is stable. Mediastinal structures are stable and grossly unremarkable. No evidence for hilar prominence. Degenerative changes dorsal spine. IMPRESSION: 1. No evidence for acute pulmonary disease.
[2022-07-09 17:02] VITALS: RESP 18
[2022-07-09 17:12] LABS: Partial Thromboplastin Time 25.3 sec (22.0-30.0); Prothrombin Time 10.5 sec (9.0-12.0)
[2022-07-09 18:07] VITALS: BP 130/78; PULSE 74; TEMP 98.9
== END 2022-07-09 18:08 | disposition home or self-care (01) ==
LOC: EC 15:14
DX: U07.1 COVID-19 (principal); E07.9 Disorder of thyroid, unspecified; Z87.891 Personal history of nicotine dependence; Z88.8 Allergy status to other drugs, medicaments and biological substances; Z88.1 Allergy status to other antibiotic agents; Z79.890 Hormone replacement therapy
CPT/HCPCS: 36415; 93005; 80048; 84484; 85025; 85610; 85730; 87636; 71045; 99285; 96374; 96361; J1885

== ENCOUNTER → 2022-10-13 | Outpatient (CLI) | payer BC ==
--- NOTE | 2022-10-13 15:51 | BD ---
EXAMINATION TYPE: Axial Bone Density DATE OF EXAM: 10/13/2022 COMPARISON: 10/23/2016 CLINICAL HISTORY: 57 years year old Female. ICD-10 CODE: N95.1 menopausal state Height: 61 Weight: 161 FRAX RISK QUESTIONS: Alcohol (3 or more units per day): NO Family History (Parent hip fracture): NO Glucocorticoids (More than 3mos): NO History of Fracture in Adulthood: TOE, CLAVICLE Secondary Osteoporosis: 1. Type 1 Diabetes: NO 2. Hyperthyroidism: NO 3. Menopause before 45: YES 4. Malnutrition: NO 5. Chronic liver disease: NO Rheumatoid Arthritis: NO Current Tobacco Use: NO RISK FACTORS HISTORY OF: Hip Fracture (Right/Left): NO Spine Fracture: NO History of Wrist Fracture: NO Surgery to Spine/Hip(right/left)/Wrist (right/left): NO Family History of Osteoporosis: NO Active: NO Diet low in dairy products/other sources of calcium: NO Postmenopausal woman: YES Take estrogen and/or progesterone medications: PREMARIN How long: PAST 20 YEARS Lost more than 2 inches in height since high school: NO Frequent falls: NO Poor Health: NO Hyperparathyroidism: NO Adrenal Insufficiency: NO MEDICATIONS: Prednisone or other steroids: NO Thyroid Medications: LEVOTHYROXIN How Long: PAST 8 YEARS Osteoporosis Medications: NO Additional Medications: VIT D, VIT C, CALCIUM, BIOTIN, EXAM MEASUREMENTS: Bone mineral densitometry was performed using the [employer] Software System. Bone mineral density as measured about the Lumbar spine is: ----- L1-L4(G/cm2): 1.393 T Score Values are as follows: ----- L1: 1.4 ----- L2: 0.9 ----- L3: 2.9 ----- L4: 1.6 ----- L1-L4: 1.8 Bone mineral density has: -0.4 % since study of: 10/23/2016 Bone mineral density about the R hip (g/cm2): 1.048 Bone mineral density about the L hip (g/cm2): 1.073 T Score values are as follows: -----R Neck: 0.1 -----L Neck: 0.3 -----R Total: 0.4 -----L Total: 0.4 Bone mineral density has: 0.0 % since study of: 10/23/2016 FRAX%s: The graph provided illustrates a 9.7% chance for a major osteoporotic fx and a 0.2% chance fo r the hips probability for fx in 10 years time. IMPRESSION: Normal (Values between +1 and -1 indicate normal bone mass). Consider repeating this study in 5 year s or sooner if there is some new clinical indication. NOTE: T-SCORE=SD OF THE YOUNG ADULT MEAN.
--- NOTE | 2022-10-14 09:00 | MM ---
Reason for Exam: Screening (asymptomatic). Last mammogram was performed 1 year(s) and 1 month(s) ago. Patient History: Menarche at age 8. First Full-Term at age 22. Hysterectomy at age 31. Postmenopausal. Patient has history of breast feeding. Patient tested for BRCA1 outcome was negative. Patient tested for BRCA2 outcome was negative. Currently using Estrogen, for 15 years. Maternal aunt had breast cancer. Paternal grandmother had breast cancer. Paternal aunt had breast cancer at or over age 50. Maternal cousin had breast cancer at or over age 50. Paternal cousin had colorectal cancer at or over age 50. Sister had breast cancer at or over age 50. Risk Values: Linda 5 year model risk: 2.8%. NCI Lifetime model risk: 15.5%. Prior Study Comparison: 08/06/2020 Right Diagnostic Mammogram, [facility]. 01/08/2021 Right Diagnostic Mammogram, [facility]. 09/16/2021 Bilateral Screening Mammogram, [facility]. Tissue Density: The breast tissue is heterogeneously dense. This may lower the sensitivity of mammography. Findings: Analyzed By CAD. Areas of bilateral asymmetric densities remain unchanged. Chronic nodularity posterior upper-outer quadrant right breast and medial posterior left cc view. No significant change from prior exams. Overall Assessment: Benign, BI-RAD 2 Management: Screening Mammogram of both breasts in 1 year. 1. Patient should continue monthly self breast exams. 2. A clinical breast exam by your physician is recommended on an annual basis. 3. This exam should not preclude additional follow-up of suspicious palpable abnormalities. Electronically signed and approved by: Manpreet Mckeon M.D. Radiologist
== END | disposition home or self-care (01) ==
LOC: RADMAMWWP 13:46
PROVIDERS: ATTEND Obstetrics & Gynecology
DX: Z12.31 Encounter for screening mammogram for malignant neoplasm of breast (principal); N95.1 Menopausal and female climacteric states; Z79.52 Long term (current) use of systemic steroids; Z80.3 Family history of malignant neoplasm of breast
CPT/HCPCS: 77063; 77067; 77080

== ENCOUNTER 2022-10-20 07:28 | Day surgery (SDC) | payer BC ==
[2022-10-15 11:09] VITALS: BMI 30.2
[~2022-10-20 07:28] MED LIST: LACTATED RINGERS 1,000 ML IV SCH; LIDOCAINE 1% (10MG/ML) FOR IV START INTRADERMA PRN
[2022-10-20 08:06] VITALS: RESP 16; TEMP 96.9
[2022-10-20] MEDS ORDERED: PROPOFOL 10 MG/ML 20 ML VIAL IV ONE (08:11)
--- NOTE | 2022-10-20 08:24 | P.GSHP ---
History of Present Illness H&P Date: 10/20/22 Chief Complaint: Colon cancer screening 57-year-old female here today for colonoscopy. Last colonoscopy 7-8 years ago. Family history of colon cancer in her mother. No bowel complaints. Past Medical History Past Medical History: Thyroid Disorder Additional Past Medical History / Comment(s): hypotyroid, vertigo in past History of Any Multi-Drug Resistant Organisms: None Reported Past Surgical History: Hysterectomy, Orthopedic Surgery, Tubal Ligation Additional Past Surgical History / Comment(s): right shoulder reconstruction, f allopian exploration, removal of cyst from neck and left leg. Past Anesthesia/Blood Transfusion Reactions: Previous Problems w/ Anesthesia Additional Past Anesthesia/Blood Transfusion Reaction / Comment(s): slow to wake up from anesthesia Smoking Status: Former smoker - Past Family History Father Family Medical History: Cancer Additional Family Medical History / Comment(s): lung Mother Family Medical History: Cancer, Congestive Heart Failure (CHF), COPD Additional Family Medical History / Comment(s): cervical, Lymphoma, lung Sister(s) Family Medical History: Cancer Additional Family Medical History / Comment(s): breast Medications and Allergies Home Medications Medication Instructions Recorded Confirmed Type Calcium Carbonate/Vitamin D3 1 each PO HS 10/02/14 10/20/22 History [Os-Andrés 500+D3 Caplet] Vitamin E (Dl,Tocopheryl Acet) 400 unit PO HS 10/02/14 10/20/22 History [Vitamin E] Cyanocobalamin [Vitamin B-12] 500 mcg PO HS 06/18/18 10/20/22 History Biotin Gummy (Unknown Strength) 1 tab PO DAILY 06/18/20 10/20/22 History Estrogens, Conjugated [Premarin] 0.3 mg PO HS 06/18/20 10/20/22 History Levothyroxine Sodium [Synthroid] 20 mcg PO QAM 06/18/20 10/20/22 History Vitamin C Gummy 1 tab PO DAILY 06/18/20 10/20/22 History Allergies Allergy/AdvReac Type Severity Reaction Status Date / Time povidone-iodine Allergy Itching Verified 10/20/22 08:07 [From Betadine] clarithromycin [From Biaxin] AdvReac Abdominal Verified 10/20/22 08:07 Pain Surgical - Exam Vital Signs Temp Pulse Resp BP Pulse Ox 96.9 F L 91 16 114/71 96 10/20/22 08:05 10/20/22 08:05 10/20/22 08:05 10/20/22 08:05 10/20/22 08:05 - General Physical exam: General: Well-developed, well-nourished HEENT: Normocephalic, sclerae nonicteric Abdomen: Nontender, nondistended Extremities: No edema Neuro: Alert and oriented Assessment and Plan (1) Colon cancer screening Narrative/Plan: Will proceed with colonoscopy at this time. Current Visit: Yes Status: Acute Code(s): Z12.11 - ENCOUNTER FOR SCREENING FOR MALIGNANT NEOPLASM OF COLON SNOMED Code(s): 044119267
--- NOTE | 2022-10-20 08:39 | P.PCN ---
Date of Procedure: 10/20/22 Procedure(s) Performed: PREOPERATIVE DIAGNOSIS: Colon cancer screening, family history of colon cancer POSTOPERATIVE DIAGNOSIS: Diverticulosis PROCEDURE: Colonoscopy ANESTHESIA: MAC SURGEON: Jalen Holland M.D. SPECIMENS: None ENDOSCOPIC PROCEDURE: The patient was placed on the endoscopy table in the left decubitus position. The Olympus colonoscope was inserted into the anus and passed under direct visualization to the base of the cecum. The appendiceal orifice was visualized. From that point the scope was slowly withdrawn inspecting all surfaces carefully. There were no neoplastic inflammatory or polypoid lesions throughout the cecum, ascending, transverse, descending, sigmoid and rectum. There was mild left-sided diverticulosis noted. Digital rectal examination was normal. The patient was taken to the recovery room in stable condition per anesthesia guidelines. RECOMMENDATIONS: Resume diet. Follow colonoscopy 5 years.
[2022-10-20 09:15] VITALS: BP 102/71; PULSE 78
== END 2022-10-20 09:35 | disposition home or self-care (01) ==
LOC: ORWHC2ENDO 07:28
PROVIDERS: ATTEND Surgery
DX: Z12.11 Encounter for screening for malignant neoplasm of colon (principal); K57.30 Diverticulosis of large intestine without perforation or abscess without bleeding; E07.9 Disorder of thyroid, unspecified; Z80.0 Family history of malignant neoplasm of digestive organs; Z90.710 Acquired absence of both cervix and uterus; Z87.891 Personal history of nicotine dependence; Z80.1 Family history of malignant neoplasm of trachea, bronchus and lung; Z85.3 Personal history of malignant neoplasm of breast; Z79.899 Other long term (current) drug therapy; Z98.51 Tubal ligation status; Z91.041 Radiographic dye allergy status; Z88.0 Allergy status to penicillin
CPT/HCPCS: 45378; J2704

== ENCOUNTER → 2023-11-08 | Outpatient (CLI) | payer BC ==
--- NOTE | 2023-11-09 08:13 | MM ---
Reason for Exam: Screening (asymptomatic). Last screening mammogram was performed 12 month(s) ago. Patient History: Menarche at age 8. First Full-Term at age 22. Hysterectomy at age 31. Postmenopausal. Patient has history of breast feeding. Patient tested for BRCA1 outcome was negative. Patient tested for BRCA2 outcome was negative. Currently using Estrogen, for 15 years. Maternal aunt had breast cancer. Paternal grandmother had breast cancer. Paternal aunt had breast cancer at or over age 50. Maternal cousin had breast cancer at or over age 50. Paternal cousin had colorectal cancer at or over age 50. Paternal cousin had breast cancer, age 63. Sister had breast cancer at or over age 50. Risk Values: Linda 5 year model risk: 2.9%. NCI Lifetime model risk: 15.1%. Prior Study Comparison: 01/08/2021 Right Diagnostic Mammogram, [facility]. 09/16/2021 Bilateral Screening Mammogram, [facility]. 10/13/2022 Bilateral MG 3D screening mammo w/cad, [facility]. Tissue Density: The breast tissue is heterogeneously dense. This may lower the sensitivity of mammography. Findings: Analyzed By CAD. There is no suspicious group of microcalcifications or new suspicious mass in either breast. Overall Assessment: Benign, BI-RAD 2 Management: Screening Mammogram of both breasts in 1 year. . Patient should continue monthly self-breast exams. A clinical breast exam by your physician is recommended on an annual basis. This exam should not preclude additional follow-up of suspicious palpable abnormalities. Note on Linda scores and lifetime risk: 1. A Linda score greater than 3% is considered moderate risk. If this is the case, consider specialist referral to assess eligibility for a risk reducing agent. 2. If overall lifetime risk for the development of breast cancer is 20% or higher, the patient may qualify for future screening with alternating mammogram and breast MRI. Electronically signed and approved by: Agustin Hess M.D. Radiologis
== END | disposition home or self-care (01) ==
LOC: RADMAMWWP 09:37
PROVIDERS: ATTEND Family Medicine
DX: Z12.31 Encounter for screening mammogram for malignant neoplasm of breast (principal); Z80.3 Family history of malignant neoplasm of breast; Z78.0 Asymptomatic menopausal state
CPT/HCPCS: 77067

== ENCOUNTER → 2023-11-16 | Outpatient (CLI) | payer BC ==
--- NOTE | 2023-11-17 17:54 | MR ---
EXAMINATION TYPE: MR iac wo/w con DATE OF EXAM: 11/16/2023 7:38 PM CLINICAL INDICATION:Female, 58 years old with history of H90.42 SNSRNRL HEAR LOSS, UNI, LEFT EAR; PHH , Left ear hearing loss and high pitch sound, COMPARISON: None TECHNIQUE: Multi planar, multi sequence imaging was performed through the brain. Specialized thin s equences were obtained through the internal auditory canals. Pre-and post gadolinium sequences were obtained. MR contrast: IV Contrast: 7.5 cc Gadavist FINDINGS: The roche-white junctions, ventricular system, and cisterns appear unremarkable. Scattered foci of h igh T2 signal intensity are seen within the periventricular white matter. Midline structures show no abnormality. Diffusion-weighted imaging shows no evidence of restricted diffusion. The susceptibility weighted images do not reveal any evidence for micro-hemorrhage. The bone marrow signal is within normal limits. Paranasal sinuses and mastoid air cells: Mild scattered paranasal sinus disease. Visualized orbits: Orbital contents are intact. After administration of gadolinium, no abnormal enhancement is seen. The internal auditory canal sequences demonstrate no significant irregularity. The 7th cranial nerve s, 8 cranial nerves, and cerebellar pontine angles appear unremarkable. After the administration mono olinium, no abnormal enhancement is seen within the internal auditory canals. Vascular loop: None. IMPRESSION: 1. No evidence of intracranial mass nor acute/subacute CVA. 2. No evidence of internal auditory canal abnormality. 3. Nonspecific white matter changes, likely secondary to small vessel ischemic disease.
== END | disposition home or self-care (01) ==
LOC: RADMRIMAIN 17:46
PROVIDERS: ATTEND Otolaryngology
DX: H90.42 Sensorineural hearing loss, unilateral, left ear, with unrestricted hearing on the contralateral side (principal); G31.89 Other specified degenerative diseases of nervous system
CPT/HCPCS: 70553; A9585

== ENCOUNTER → 2024-08-31 | Outpatient (CLI) | payer BC ==
--- NOTE | 2024-08-31 12:24 | US ---
EXAMINATION TYPE: US extremity nonvasc mass LT DATE OF EXAM: 08/31/2024 COMPARISON: NONE CLINICAL INDICATION: Female, 59 years old with history of R22.40 LOCALIZED SWELLING, MASS AND LUMP; L ump x 2-3 months causing pain along lateral calf TECHNIQUE: Grayscale and color Doppler ultrasound images of the left lateral upper calf in the patie nt's region of concern were obtained. FINDINGS/IMPRESSION: Irregular antiparallel hypoechoic area with adjacent vascularity within the mus cular region of the calf measuring 0.4 x 0.5 x 0.4 cm. No organized fluid collection. This is indeter minate but may represent muscular injury versus other etiologies. Consider further evaluation with MR Stephens. [facility], , 08/31/2024 12:22 PM
== END | disposition home or self-care (01) ==
LOC: RADUSWWP 08:11
PROVIDERS: ATTEND Family Medicine
DX: R22.42 Localized swelling, mass and lump, left lower limb (principal)

== ENCOUNTER → 2024-11-09 | Outpatient (CLI) | payer BC ==
--- NOTE | 2024-11-09 09:46 | MM ---
Reason for Exam: Screening (asymptomatic). Last screening mammogram was performed 12 month(s) ago. Patient History: Menarche at age 8. First Full-Term at age 22. Hysterectomy at age 31. Postmenopausal. Patient has history of breast feeding. Patient tested for BRCA1 outcome was negative. Patient tested for BRCA2 outcome was negative. Currently using Estrogen, for 15 years. Maternal aunt had breast cancer. Paternal grandmother had breast cancer. Paternal aunt had breast cancer at or over age 50. Maternal cousin had breast cancer at or over age 50. Paternal cousin had colorectal cancer at or over age 50. Paternal cousin had breast cancer, age 63. Sister had breast cancer at or over age 50. Risk Values: Linda 5 year model risk: 3.0%. NCI Lifetime model risk: 14.8%. Prior Study Comparison: 09/16/2021 Bilateral Screening Mammogram, [facility]. 10/13/2022 Bilateral MG 3D screening mammo w/cad, [facility]. 11/08/2023 Bilateral MG screening mammo w CAD, [facility]. Tissue Density: The breasts are heterogeneously dense, which may obscure small masses. Findings: Analyzed By CAD. Right breast: There is no suspicious group of microcalcifications or new suspicious mass. Benign-appearing calcifications right breast. Left breast: There is no suspicious group of microcalcifications or new suspicious mass. Overall Assessment: Benign, BI-RAD 2 Management: Screening Mammogram of both breasts in [address] [facility] will attempt to contact patient to return for supplemental views and ultrasound if indicated. Patient should continue monthly self-breast exams. A clinical breast exam by your physician is recommended on an annual basis. This exam should not preclude additional follow-up of suspicious palpable abnormalities. Note on Linda scores and lifetime risk: 1. A Linda score greater than 3% is considered moderate risk. If this is the case, consider specialist referral to assess eligibility for a risk reducing agent. 2. If overall lifetime risk for the development of breast cancer is 20% or higher, the patient may qualify for future screening with alternating mammogram and breast MRI. [facility], , 11/09/2024 9:43 AM. Electronically signed and approved by: Chavo Maurer DO
== END | disposition home or self-care (01) ==
LOC: RADMAMWWP 09:16
PROVIDERS: ATTEND Family Medicine
DX: Z12.31 Encounter for screening mammogram for malignant neoplasm of breast (principal); R92.333 Mammographic heterogeneous density, bilateral breasts; Z78.0 Asymptomatic menopausal state; Z80.3 Family history of malignant neoplasm of breast
CPT/HCPCS: 77067

== ENCOUNTER 2024-11-12 23:55 | Emergency (ER) | payer BC ==
[2024-11-13 00:01] VITALS: TEMP 98.1
--- NOTE | 2024-11-13 00:35 | ED ---
General Adult HPI - General Chief complaint: Abdominal Pain Stated complaint: ABD Pain,Back pain Time Seen by Provider: 11/13/24 00:03 Source: patient Mode of arrival: wheelchair Limitations: no limitations - History of Present Illness Initial comments: Patient is a 59-year-old female no significant medical history presenting today for sudden onset right sided back pain radiating around to her right lower quadrant. Patient states she was lying in bed tonight when she began having sharp back pains that "feel like labor pains" radiating from her right flank around to her right groin. No pain medications prior to arrival. Patient did have an episode of nonbloody nonbilious emesis. No fevers or chills no chest pain, shortness of breath, difficulty in breathing, no diarrhea, melena or hematochezia. No hematuria or dysuria though she states she feels like she has to urinate but is unable to. Prior abdominal surgeries include prior hysterectomy. She denies recent injuries, saddle anesthesia, - Related Data Home Medications Medication Instructions Recorded Confirmed Calcium Carbonate/Vitamin D3 1 each PO HS 10/02/14 10/20/22 [Os-Andrés 500+D3 Caplet] Vitamin E (Dl,Tocopheryl Acet) 400 unit PO HS 10/02/14 10/20/22 [Vitamin E] Cyanocobalamin [Vitamin B-12] 500 mcg PO HS 06/18/18 10/20/22 Biotin Gummy (Unknown Strength) 1 tab PO DAILY 06/18/20 10/20/22 Estrogens, Conjugated [Premarin] 0.3 mg PO HS 06/18/20 10/20/22 Levothyroxine Sodium [Synthroid] 20 mcg PO QA 06/18/20 10/20/22 Vitamin C Gummy 1 tab PO DAILY 06/18/20 10/20/22 Previous Rx's Medication Instructions Recorded Ketorolac [Toradol] 10 mg PO Q12HR #15 tab 11/13/24 Tamsulosin [Flomax] 0.4 mg PO DAILY #10 cap 11/13/24 Allergies Allergy/AdvReac Type Severity Reaction Status Date / Time bee venom protein (honey bee) Allergy Anaphylaxis Verified 11/12/24 23:57 povidone-iodine Allergy Itching Verified 11/12/24 23:57 [From Betadine] clarithromycin [From Biaxin] AdvReac Abdominal Verified 11/12/24 23:57 Pain Review of Systems ROS Statement: Those systems with pertinent positive or pertinent negative responses have been documented in the HPI. ROS Other: All systems not noted in ROS Statement are negative. Past Medical History Past Medical History: Thyroid Disorder Additional Past Medical History / Comment(s): COVID History of Any Multi-Drug Resistant Organisms: None Reported Past Surgical History: Hysterectomy, Orthopedic Surgery, Tubal Ligation Additional Past Surgical History / Comment(s): right shoulder reconstruction, fallopian exploration, removal of cyst from neck behind ear and left leg. Past Anesthesia/Blood Transfusion Reactions: Previous Problems w/ Anesthesia Additional Past Anesthesia/Blood Transfusion Reaction / Comment(s): slow to wake up from anesthesia Past Psychological History: No Psychological Hx Reported Smoking Status: Former smoker Past Alcohol Use History: Occasional Past Drug Use History: None Reported - Past Family History Father Family Medical History: Cancer Additional Family Medical History / Comment(s): lung Mother Family Medical History: Cancer, Congestive Heart Failure (CHF), COPD Additional Family Medical History / Comment(s): cervical, Lymphoma, lung Sister(s) Family Medical History: Cancer Additional Family Medical History / Comment(s): breast General Exam - General Exam Comments Initial Comments: PE: CONSTITUTIONAL: [Moderate distress secondary to pain, well-appearing, nontoxic] SKIN: [warm, dry, no jaundice, hives or petechiae] EYES:[ pupils are equally round, extraocular movements intact without nystagmus, clear conjunctiva, non-icteric sclera] HENT: [normocephalic, atraumatic, moist mucus membranes, oropharynx clear without exudates] NECK: , [Full range of motion, normal appearance] PULMONARY: [clear to auscultation without wheezes, rhonchi, or rales, normal excursion, no accessory muscle use and no stridor] CARDIOVASCULAR:[ regular rate, rhythm, normal S1 and S2. No appreciated murmurs, rubs or gallops. Strong radial pulses with intact distal perfusion. No lower extremity edema] GASTROINTESTINAL: [soft, active bowel sounds throughout, tenderness to palpation in the right lower quadrant, right CVA TTP, non-distended, no palpable masses, no rebound or guarding. No hepatosplenomegaly] GENITOURINARY: MUSCULOSKELETAL: [Extremities have no gross deformity, no edema, redness, or swelling. No calf swelling ] NEUROLOGIC: [_a/o x 3, GCS 15, normal mentation and speech. Moves all extremities x 4 without motor or sensory deficit] PSYCHIATRIC:[ _normal mood and affect, thought process is clear and linear] Limitations: no limitations Course Vital Signs 11/12/24 11/13/24 11/13/24 23:58 01:45 04:17 Temperature 98.1 F Pulse Rate 76 72 65 Respiratory 26 H 16 18 Rate Blood Pressure 143/71 132/78 114/70 O2 Sat by Pulse 97 97 95 Oximetry Medical Decision Making - Medical Decision Making Was pt. sent in by a medical professional or institution (, [facility]LEX, MEDICAL WRITER, urgent care, hospital, or group home...) When possible be specific @ -[No] Did you speak to anyone other than the patient for history (EMS, parent, family, police, friend...)? What history was obtained from this source @ -[No] Did you review nursing and triage notes (agree or disagree)? Why? @ -[I reviewed nursing and triage notes] Were old charts reviewed (outside hosp., previous admission, EMS record, old EKG, old radiological studies, urgent care reports/EKG's, group home records)? Report findings @ -[Medical records reviewed] Differential Diagnosis (chest pain, altered mental status, abdominal pain women, abdominal pain men, vaginal bleeding, weakness, fever, dyspnea, syncope, headache, dizziness, GI bleed, back pain, seizure, CVA, palpatations, mental health, musculoskeletal)? @ -[not applicable] EKG interpreted by me (3pts min.). @ -[As above] X-rays interpreted by me (1pt min.). @ -[None done] CT interpreted by me (1pt min.). @ -[None done] U/S interpreted by me (1pt. min.). @ -[None done] What testing was considered but not performed or refused? (CT, X-rays, U/S, labs)? Why? @ -[None] What meds were considered but not given or refused? Why? @ -[None] Did you discuss the management of the patient with other professionals (professionals i.e. , PA, MEDICAL WRITER, lab, RT, psych nurse, social worker assistant, ammonia distiller, teacher, fire information officer, case aide)? Give summary @ -[No] Was smoking cessation discussed for >3mins.? @ -[No] Was critical care preformed (if so, how long)? @ -[No] Were there social determinants of health that impacted care today? How? (Homelessness, low income, unemployed, alcoholism, drug addiction, transportation, low edu. Level, literacy, decrease access to med. care, halfway, rehab)? @ -[No] Was there de-escalation of care discussed even if they declined (Discuss DNR or withdrawal of care, Hospice)? @ -[No] What co-morbidities impacted this encounter? (DM, HTN, Smoking, COPD, CAD, Cancer, CVA, ARF, Chemo, Hep., AIDS, mental health diagnosis, sleep apnea, morbid obesity)? @ -[None] Was patient admitted / discharged? Hospital course, mention meds given and route, prescriptions, significant lab abnormalities, going to OR and other pertinent info. @ -[hospital course] patient is a 59-year-old female presenting today for right sided flank pain radiating to the right lower quadrant. On my assessment patient is uncomfortable appearing, difficulty lying still secondary to pain. Exam significant for no midline spinal tenderness palpation, right CVA tenderness to palpation, right lower quadrant tenderness to palpation. Differential diagnosis as above, will provide with pain control, patient specifically request to not give narcotics. Will obtain CT abdomen pelvis, ur inalysis basic labs and provide IV fluids. Patient agreeable plan. Ordered Toradol for pain control. CT showed 2 mm stone at the UVJ. On reassessment patient's pain has essentially resolved. Discussed with patient plan for discharge. Undiagnosed new problem with uncertain prognosis? @ -[No] Drug Therapy requiring intensive monitoring for toxicity (Heparin, Nitro, Insulin, Cardizem)? @ -[No] Were any procedures done? @ -[No] Diagnosis/symptom? @ -[default] Acute, or Chronic, or Acute on Chronic? @ -[default] Uncomplicated (without systemic symptoms) or Complicated (systemic symptoms)? @ -[default] Side effects of treatment? @ -[No] Exacerbation, Progression, or Severe Exacerbation? @ -[No] Poses a threat to life or bodily function? How? (Chest pain, [place], [place], pneumonia, PE, COPD, DKA, ARF, appy, cholecystitis, CVA, Diverticulitis, Homicidal, Suicidal, threat to staff... and all critical care pts) @ -[No] - Lab Data Result diagrams: 11/13/24 00:32 11/13/24 00:32 Lab Results 11/13/24 11/13/24 11/13/24 Range/Units 00:32 00:32 00:32 WBC 5.7 (3.8-10.6) k/uL RBC 4.53 (3.80-5.40) m/uL Hgb 14.1 (11.4-16.0) gm/dL Hct 41.0 (34.0-46.0) % MCV 90.5 (80.0-100.0) fL MCH 31.2 (25.0-35.0) pg MCHC 34.5 (31.0-37.0) g/dL RDW 12.4 (11.5-15.5) % Plt Count 172 (150-450) k/uL MPV 7.6 Neutrophils % 66 % Lymphocytes % 25 % Monocytes % 5 % Eosinophils % 2 % Basophils % 1 % Neutrophils # 3.8 (1.3-7.7) k/uL Lymphocytes # 1.5 (1.0-4.8) k/uL Monocytes # 0.3 (0-1.0) k/uL Eosinophils # 0.1 (0-0.7) k/uL Basophils # 0.0 (0-0.2) k/uL PT 10.6 (10.0-12.5) sec INR 1.0 (<1.2) APTT 22.5 (22.0-30.0) sec Sodium 140 (137-145) mmol/L Potassium 3.9 (3.5-5.1) mmol/L Chloride 106 (98-107) mmol/L Carbon Dioxide 24 (22-30) mmol/L Anion Gap 10 mmol/L BUN 22 H (7-17) mg/dL Creatinine 0.97 (0.52-1.04) mg/dL Est GFR (CKD-EPI)AfAm 74 (>60 ml/min/1.73 sqM) Est GFR (CKD-EPI)NonAf 64 (>60 ml/min/1.73 sqM) Glucose 118 H (74-99) mg/dL Plasma Lactic Acid Yannick (0.7-2.0) mmol/L Calcium 9.9 (8.4-10.2) mg/dL Total Bilirubin 0.4 (0.2-1.3) mg/dL AST 25 (14-36) U/L ALT 18 (4-34) U/L Alkaline Phosphatase 77 (38-126) U/L Total Protein 6.6 (6.3-8.2) g/dL Albumin 4.4 (3.5-5.0) g/dL Amylase 56 (30-110) U/L Lipase 112 (23-300) U/L Urine Color Urine Appearance (Clear) Urine pH (5.0-8.0) Ur Specific [place] (1.001-1.035) Urine Protein (Negative) Urine Glucose (UA) (Negative) Urine Ketones (Negative) Urine Blood (Negative) Urine Nitrite (Negative) Urine Bilirubin (Negative) Urine Urobilinogen (<2.0) mg/dL Ur Leukocyte Esterase (Negative) Urine RBC (0-5) /hpf Urine WBC (0-5) /hpf Ur Squamous Epith Cells (0-4) /hpf Urine Mucus (None) /hpf 11/13/24 11/13/24 Range/Units 00:32 01:46 WBC (3.8-10.6) k/uL RBC (3.80-5.40) m/uL Hgb (11.4-16.0) gm/dL Hct (34.0-46.0) % MCV (80.0-100.0) fL MCH (25.0-35.0) pg MCHC (31.0-37.0) g/dL RDW (11.5-15.5) % Plt Count (150-450) k/uL MPV Neutrophils % % Lymphocytes % % Monocytes % % Eosinophils % % Basophils % % Neutrophils # (1.3-7.7) k/uL Lymphocytes # (1.0-4.8) k/uL Monocytes # (0-1.0) k/uL Eosinophils # (0-0.7) k/uL Basophils # (0-0.2) k/uL PT (10.0-12.5) sec INR (<1.2) APTT (22.0-30.0) sec Sodium (137-145) mmol/L Potassium (3.5-5.1) mmol/L Chloride (98-107) mmol/L Carbon Dioxide (22-30) mmol/L Anion Gap mmol/L BUN (7-17) mg/dL Creatinine (0.52-1.04) mg/dL Est GFR (CKD-EPI)AfAm (>60 ml/min/1.73 sqM) Est GFR (CKD-EPI)NonAf (>60 ml/min/1.73 sqM) Glucose (74-99) mg/dL Plasma Lactic Acid Yannick 1.5 (0.7-2.0) mmol/L Calcium (8.4-10.2) mg/dL Total Bilirubin (0.2-1.3) mg/dL AST (14-36) U/L ALT (4-34) U/L Alkaline Phosphatase (38-126) U/L Total Protein (6.3-8.2) g/dL Albumin (3.5-5.0) g/dL Amylase (30-110) U/L Lipase (23-300) U/L Urine Color Light Yellow Urine Appearance Clear (Clear) Urine pH 6.0 (5.0-8.0) Ur Specific [place] 1.019 (1.001-1.035) Urine Protein Negative (Negative) Urine Glucose (UA) Negative (Negative) Urine Ketones Trace H (Negative) Urine Blood Large H (Negative) Urine Nitrite Negative (Negative) Urine Bilirubin Negative (Negative) Urine Urobilinogen <2.0 (<2.0) mg/dL Ur Leukocyte Esterase Negative (Negative) Urine RBC 142 H (0-5) /hpf Urine WBC 1 (0-5) /hpf Ur Squamous Epith Cells <1 (0-4) /hpf Urine Mucus Rare H (None) /hpf Disposition Clinical Impression: Ureterolithiasis, Ovarian cyst Disposition: HOME SELF-CARE Condition: Stable Instructions (If sedation given, give patient instructions): Ureteral Stones (ED) Additional Instructions: Every disease is a spectrum and a small chance still exists that a serious condition could develop, for this reason, please monitor yourself closely for new, changing or worsening symptoms, confusion, uncontrollable pain, burning with urination, fever, inability to tolerate/keep down fluids or your medications, inability to follow up with outpatient providers as instructed and should you experience these symptoms or should you have any further concerns for your wellbeing please return to the ED or call 911 immediately. Your pain can be treated with ibuprofen and acetaminophen. You can take up to 400-600 mg of ibuprofen (Advil, Motrin) 3 times daily (every 8 hours) but can also use lower doses if this relieves your pain. Some people prefer naproxen (Aleve, Naprosyn) which can be taken in doses of 500 mg up to twice a day. Do not take both of these medicines together, and do not combine either with ketorolac (Toradol), meloxicam (Mobic), or indomethacin (Tivorbex). Some people can develop stomach discomfort with higher doses of either ibuprofen or naproxen, if this develops decrease your dose or stop taking it. If you need to take this dose daily for more than a week, please schedule an appointment for re-evaluation with your PCP. Please take these medications with food. You can take up to 1000 mg of acetaminophen (Tylenol) every 6 hours. Be careful as this is included in some medicines like Nyquil, [place], Percocet, Vicodin, STANBACK, Goody's Powders, and Excedrin. You can also use lidocaine patches for topical pain. You can purchase 4% patches over the counter at most drug stores. These can be helpful for pain from your muscles or bones. Plenty of fluids. 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 PLEASE call your primary care physician as soon as possible to arrange / discuss plan for followup appointment. Appointment in the next 1-3 days is strongly encouraged if possible. PLEASE let us know here before you leave if there is anything further we can do to be of any assistance. Take care and feel Better! Prescriptions: Tamsulosin [Flomax] 0.4 mg PO DAILY #10 cap Ketorolac [Toradol] 10 mg PO Q12HR #15 tab Is patient prescribed a controlled substance at d/c from ED?: No Referrals: Vinicio Good DO [Primary Care Provider] - 1-2 days Farhad Welch MD [STAFF PHYSICIAN] - 1-2 days
[2024-11-13] MEDS: KETOROLAC 15 MG/ML 1 ML VIAL IVP STA (00:37)
[2024-11-13] MEDS: ONDANSETRON 4 MG/2 ML VIAL IVP STA (00:37)
[2024-11-13] MEDS: ACETAMINOPHEN TAB 500 MG TAB PO STA (00:38)
[2024-11-13] MEDS: diazePAM 2 MG TAB PO STA (00:38)
[2024-11-13] MEDS: SODIUM CHLORIDE 0.9% 2,000 ML IV STA (00:38)
[2024-11-13 01:01] LABS: Basophils % (A) 1 %; Eosinophils # (A) 0.1 k/uL (0-0.7); Eosinophils % (A) 2 %; HGB 14.1 gm/dL (11.4-16.0); Lymphocytes # (A) 1.5 k/uL (1.0-4.8); Lymphocytes % (A) 25 %; MCH 31.2 pg (25.0-35.0); MCHC 34.5 g/dL (31.0-37.0); MCV 90.5 fL (80.0-100.0); Mean Platelet Volume 7.6; Monocytes # (A) 0.3 k/uL (0-1.0); Monocytes % (A) 5 %; Neutrophils # (A) 3.8 k/uL (1.3-7.7); Neutrophils % (A) 66 %; Platelet Count 172 k/uL (150-450); RBC 4.53 m/uL (3.80-5.40); RDW 12.4 % (11.5-15.5); WBC 5.7 k/uL (3.8-10.6)
[2024-11-13 01:07] LABS: Partial Thromboplastin Time 22.5 sec (22.0-30.0); Prothrombin Time 10.6 sec (10.0-12.5)
[2024-11-13 01:16] LABS: ALT 18 U/L (4-34); AST 25 U/L (14-36); African American GFR (CKD) 74 (>60 ml/min/1.73 sqM); Albumin 4.4 g/dL (3.5-5.0); Alkaline Phosphatase 77 U/L (38-126); Amylase 56 U/L (30-110); Anion Gap 10 mmol/L; Blood Urea Nitrogen 22 mg/dL (7-17); Calcium 9.9 mg/dL (8.4-10.2); Carbon Dioxide 24 mmol/L (22-30); Chloride 106 mmol/L (98-107); Glucose 118 mg/dL (74-99); Lipase 112 U/L (23-300); Non-African American GFR(CKD) 64 (>60 ml/min/1.73 sqM); Potassium 3.9 mmol/L (3.5-5.1); Sodium 140 mmol/L (137-145); Total Bilirubin 0.4 mg/dL (0.2-1.3); Total Protein 6.6 g/dL (6.3-8.2)
[2024-11-13 02:09] LABS: Appearance,Urine Clear (Clear); Bilirubin,Urine Negative (Negative); Blood,Urine Large (Negative); Color,Urine Light Yellow; Glucose,Urine (UA) Negative (Negative); Ketones,Urine Trace (Negative); Leukocyte Esterase,Urine Negative (Negative); Mucus,Urine Rare /hpf; Nitrite,Urine Negative (Negative); Protein,Urine Negative (Negative); RBC,Urine 142 /hpf (0-5); Specific Gravity,Urine 1.019 (1.001-1.035); Squamous Epithelial Cell,Urine <1 /hpf (0-4); Urobilinogen,Urine <2.0 mg/dL (<2.0); WBC,Urine 1 /hpf (0-5)
--- NOTE | 2024-11-13 03:19 | CT ---
EXAM: CT Abdomen and Pelvis Without Intravenous Contrast CLINICAL HISTORY: ITS.REASON CT Reason: Right flank, RLQ abd. pain, TECHNIQUE: Axial computed tomography images of the abdomen and pelvis without intravenous contrast. CTDI is 10.2 mGy and DLP is 553.3 mGy-cm. This CT exam was performed using one or more of the following dose reduction techniques: automated exposure control, adjustment of the mA and/or kV according to patient size, and/or use of iterative reconstruction technique. COMPARISON: No relevant prior studies available. FINDINGS: Limitations: Limited evaluation in the absence of contrast. Lung bases: Unremarkable. No mass. No consolidation. ABDOMEN: Liver: Low attenuation foci in the liver some of which are due to cysts. Others are too small to characterize. Gallbladder and bile ducts: Cholelithiasis. No gross findings to suggest cholecystitis. No ductal dilation. Pancreas: Unremarkable. No ductal dilation. Spleen: Calcified granulomata in the spleen. Adrenals: Unremarkable. No mass. Kidneys and ureters: Nonobstructive 2 mm calculus within the right distal ureter (not visualized on casting machine adjuster imaging) with upstream mild right renal hydronephrosis with perinephric and periureteral stranding. Stomach and bowel: No evidence of bowel obstruction. No evidence of bowel obstruction. No mucosal thickening. PELVIS: Appendix: Normal appendix. Bladder: Unremarkable. No stones. Reproductive: Left ovarian cyst measuring 3.7 cm in maximum diameter. Hysterectomy changes. ABDOMEN and PELVIS: Intraperitoneal space: Unremarkable. No free air. No significant fluid collection. Bones/joints: Degenerative changes in the spine. No acute fracture. No dislocation. Soft tissues: Umbilical hernia containing fat. Vasculature: Multiple phleboliths in the pelvis. Atherosclerotic disease. No abdominal aortic aneurysm. Lymph nodes: Unremarkable. No enlarged lymph nodes. IMPRESSION: 1. Nonobstructive 2 mm calculus within the right distal ureter (not visualized on casting machine adjuster imaging) with upstream mild right renal hydronephrosis with perinephric and periureteral stranding. 2. No other renal calculi detected. 3. Multiple phleboliths in the pelvis. 4. Left ovarian cyst measuring 3.7 cm in maximum diameter. Recommend pelvic ultrasound follow-up in 6-12 months. 5. No other acute findings. 6. Incidental findings as described.
[2024-11-13] MEDS: TAMSULOSIN 0.4 MG CAP.ER.24H PO STA (03:38)
[2024-11-13 04:18] VITALS: BP 114/70; PULSE 65; RESP 18
== END 2024-11-13 04:32 | disposition home or self-care (01) ==
LOC: EC 23:55
DX: N83.201 Unspecified ovarian cyst, right side (principal); N13.2 Hydronephrosis with renal and ureteral calculous obstruction; Z87.891 Personal history of nicotine dependence; Z88.1 Allergy status to other antibiotic agents; Z88.3 Allergy status to other anti-infective agents; Z91.030 Bee allergy status
CPT/HCPCS: 36415; 80053; 82150; 83605; 83690; 85025; 85610; 85730; 81001; 74176; 99285; 96374; 96375; 96361; 51798; J2405; J1885